=== PATIENT | female | born 1995 | race Caucasian/White ===

== ENCOUNTER 2017-01-28 11:49 | Emergency (ER) | payer MEDICAID, SELFPAY | END 2017-01-28 13:37 | disposition home or self-care (01) | PROVIDERS: Emergency Provider Emergency Medicine; Family Provider Internal Medicine Adolescent Medicine; Visit Provider Emergency Medicine | DX: O20.0 Threatened abortion (principal) | CPT/HCPCS: 76817; 81001; 81025; 87086; 99282 ==

== ENCOUNTER → 2017-01-28 | Outpatient (CLI) | payer MEDICAID, SELFPAY | PROVIDERS: Visit Provider Nurse Practitioner Obstetrics & Gynecology | DX: Z32.00 Encounter for pregnancy test, result unknown (principal); Z79.01 Long term (current) use of anticoagulants; I48.91 Unspecified atrial fibrillation; Z51.81 Encounter for therapeutic drug level monitoring | CPT/HCPCS: 36415; 84702 ==

== ENCOUNTER → 2017-01-30 | Outpatient (CLI) | payer MEDICAID, SELFPAY | PROVIDERS: Visit Provider Nurse Practitioner Obstetrics & Gynecology | DX: Z32.00 Encounter for pregnancy test, result unknown (principal) | CPT/HCPCS: 36415; 84702 ==

== ENCOUNTER 2017-02-09 21:00 | Emergency (ER) | payer MEDICAID, SELFPAY ==
[2017-02-09 22:44] VITALS: BP 121/79; PULSE 85; RESP 14; TEMP 36.9; O2SAT 100; BMI 35.0
[2017-02-09 23:04] LABS: Appearance,Urine CLEAR (Clear); Bilirubin,Urine Negative (Negative); Blood, Urine 1+ (Negative); Color,Urine YELLOW (Yellow); Glucose,Urine (UA) Negative (Negative); Ketones,Urine Negative (Negative); Leukocyte Esterase,Urine Negative (Negative); Microscopic, Urine URINE MICROSCOPIC (MICROSCOPIC); Nitrate,Urine Negative (Negative); Protein,Urine Negative (Negative); Specific Gravity, Urine 1.015 (1.005-1.030); Urine Pregnancy, HCG Qual. Positive (Negative); Urobilinogen,Urine 0.2 EU/dl (0.2)
[2017-02-09 23:18] LABS: Bacteria,Urine 1+ /lpf
[2017-02-10 01:21] VITALS: BP 110/69; PULSE 76; RESP 16; O2SAT 96
[2017-02-10 01:25] VITALS: BP 110/69; PULSE 76; RESP 16; O2SAT 96
== END 2017-02-10 01:27 | disposition left against medical advice (07) ==
PROVIDERS: Emergency Provider Emergency Medicine; Family Provider Internal Medicine Adolescent Medicine; PCP Internal Medicine Adolescent Medicine
DX: Z53.29 Procedure and treatment not carried out because of patient's decision for other reasons (principal)
CPT/HCPCS: 81001; 81025; 99283

== ENCOUNTER 2017-02-11 17:24 | Emergency (ER) | payer MEDICAID, SELFPAY ==
[2017-02-11 19:50] VITALS: BP 118/67; PULSE 100; RESP 18; TEMP 36.9; O2SAT 100; BMI 34.8
[2017-02-11 20:09] LABS: UTC Influenza A Antigen Negative (Negative); UTC Influenza B Antigen Negative (Negative)
--- NOTE | 2017-02-11 20:30 | HMH.EDUTC ---
[facility] Disposition Clinical Impression: Viral upper respiratory illness Disposition: Home, Self-Care Condition on Discharge: Good Instructions: DI for Viral Upper Respiratory Infection -- Adult Additional Instructions: * Monitor Temp. Tylenol and/or Ibuprofen as needed. ER if fever is no less than 101 despite alternating Tylenol and Ibuprofen * Encourage fluids, water, Gatorade, powerade, pedialyte if infant/toddler/or child * Warm salt water gargles for throat irritation *Warm fluids *Sleep elevated *humidifier or vaporizer Lots of rest Increase fluids, water, Gatorade, powerade Follow up IMMEDIATELY for new or worsening of symptoms OR no noticeable improvement over the next 48-72 hours. 911 immediately for any life threatening symptoms such as chest pain or difficulty breathing Referrals: Rafita Sims MD [Primary Care Provider] - Pavel Baez MD [Staff Physician] - Time of Disposition: 20:45 Medical Decision Making Vital Signs: 02/11/17 19:50 Temperature 98.5 F Temperature Source Temporal Artery Scan Pulse Rate [Right] 100 H Respiratory Rate 18 Blood Pressure [Right Arm] 118/67 Blood Pressure Mean [Right Arm] 84 Blood Pressure Source [Right Arm] Automatic Cuff Blood Pressure Position [Right Arm] Sitting 02 Sat by Pulse Oximetry 100 Oxygen Delivery Method Room Air - Lab Data Lab Results 02/11/17 19:55: Influenza Type A Ag Negative, Influenza Type B Ag Negative - Ortiz Inquiry Pt receiving controlled substance: No Ortiz was queried for this patient: No [facility] HPI - General Stated complaint: cough,face hot Mode of Arrival: Ambulatory Source of Information: Patient Limitations: No Limitations Description of Symptoms (Recalled from Triage Doc. by RN): COUGH, CONGESTION YESTERDAY, 5 WKS IUP HEENT Symptoms (Recalled from RN notes): Yes Resp Symptoms (Recalled from RN notes): No Skin Symptoms (Recalled from RN notes): No MS Symptoms (Recalled from RN notes): No Functional Status (Recalled from RN notes): N - History of Present Illness Provider Complaint: State that her daughter was recently seen and treated for the flu States that she recently found out that she is and was worried that she may have the flu too States that since this morning she has continued to feel worse States that she has ran a low grade fever and had body aches along with cough - Related Data Home Medications Medication Instructions Recorded Confirmed #103/Iron Fumarate/FA 1 each PO DAILY 02/09/17 02/09/17 [ Tablet] Allergies Allergy/AdvReac Type Severity Reaction Status Date / Time No Known Allergies Allergy Unverified 01/27/17 15:02 - Worker's Comp Is this a Worker's Comp case?: Yes [facility] History Medical History: Denies:: Cancer, Diabetes Mellitus Type 1, Diabetes Mellitus Type 2, MRSA Amputation: No Fractures: No - *Social History Smoking Status: Current every day smoker Tobacco Type: cigarettes # Packs/Day (cigarettes): 1 Alcohol Intake: never - Psychiatric History Expresses thoughts of harming self/others: None Suicide Plan Description: No Plan - ENT Reports nasal congestion - Respiratory Reports cough Physical Exam - General General appearance: alert, in no apparent distress - ENT ENT exam: Present: normal exam, normal oropharynx, mucous membranes moist, TM's normal bilaterally, normal external ear exam - Respiratory Respiratory exam: Present: normal lung sounds bilaterally. Absent: respiratory distress - Cardiovascular Cardiovascular exam: Present: regular rate, normal rhythm. Absent: JVD - Abdominal Exam Abdominal exam: Present: soft, normal bowel sounds. Absent: distention, tenderness, guarding - Neurological Exam Neurological exam: Present: alert, oriented X3
--- NOTE | 2017-02-11 20:37 | ED_ITS ---
[facility] Disposition Clinical Impression: Viral upper respiratory illness Disposition: Home, Self-Care Condition on Discharge: Good Instructions: DI for Viral Upper Respiratory Infection -- Adult Additional Instructions: * Monitor Temp. Tylenol and/or Ibuprofen as needed. ER if fever is no less than 101 despite alternating Tylenol and Ibuprofen * Encourage fluids, water, Gatorade, powerade, pedialyte if infant/toddler/or child * Warm salt water gargles for throat irritation *Warm fluids *Sleep elevated *humidifier or vaporizer Lots of rest Increase fluids, water, Gatorade, powerade Follow up IMMEDIATELY for new or worsening of symptoms OR no noticeable improvement over the next 48-72 hours. 911 immediately for any life threatening symptoms such as chest pain or difficulty breathing Referrals: Rafita Sims MD [Primary Care Provider] - Pavel Baez MD [Staff Physician] - Time of Disposition: 20:45 Medical Decision Making Vital Signs: 02/11/17 19:50 Temperature 98.5 F Temperature Source Temporal Artery Scan Pulse Rate [Right] 100 H Respiratory Rate 18 Blood Pressure [Right Arm] 118/67 Blood Pressure Mean [Right Arm] 84 Blood Pressure Source [Right Arm] Automatic Cuff Blood Pressure Position [Right Arm] Sitting 02 Sat by Pulse Oximetry 100 Oxygen Delivery Method Room Air - Lab Data Lab Results 02/11/17 19:55: Influenza Type A Ag Negative, Influenza Type B Ag Negative - Ortiz Inquiry Pt receiving controlled substance: No Ortiz was queried for this patient: No [facility] HPI - General Stated complaint: cough,face hot Mode of Arrival: Ambulatory Source of Information: Patient Limitations: No Limitations Description of Symptoms (Recalled from Triage Doc. by RN): COUGH, CONGESTION YESTERDAY, 5 WKS IUP HEENT Symptoms (Recalled from RN notes): Yes Resp Symptoms (Recalled from RN notes): No Skin Symptoms (Recalled from RN notes): No MS Symptoms (Recalled from RN notes): No Functional Status (Recalled from RN notes): N - History of Present Illness Provider Complaint: State that her daughter was recently seen and treated for the flu States that she recently found out that she is and was worried that she may have the flu too States that since this morning she has continued to feel worse States that she has ran a low grade fever and had body aches along with cough - Related Data Home Medications Medication Instructions Recorded Confirmed #103/Iron Fumarate/FA 1 each PO DAILY 02/09/17 02/09/17 [ Tablet] Allergies Allergy/AdvReac Type Severity Reaction Status Date / Time No Known Allergies Allergy Unverified 01/27/17 15:02 - Worker's Comp Is this a Worker's Comp case?: Yes [facility] History Medical History: Denies:: Cancer, Diabetes Mellitus Type 1, Diabetes Mellitus Type 2, MRSA Amputation: No Fractures: No - *Social History Smoking Status: Current every day smoker Tobacco Type: cigarettes # Packs/Day (cigarettes): 1 Alcohol Intake: never - Psychiatric History Expresses thoughts of harming self/others: None Suicide Plan Description: No Plan - ENT Reports nasal congestion - Respiratory Reports cough Physical Exam - General General appearance: alert, in no apparent distress - ENT ENT e
== END 2017-02-11 20:48 | disposition home or self-care (01) ==
PROVIDERS: Emergency Provider Nurse Practitioner; PCP Internal Medicine Adolescent Medicine
DX: J06.9 Acute upper respiratory infection, unspecified (principal); F17.210 Nicotine dependence, cigarettes, uncomplicated
CPT/HCPCS: 87276; 87804; 99202

== ENCOUNTER 2017-02-17 23:04 | Emergency (ER) | payer MEDICAID, SELFPAY ==
[2017-02-17 23:09] VITALS: BP 107/66; PULSE 104; RESP 16; TEMP 36.6; O2SAT 99; BMI 37.1
[2017-02-17 23:31] LABS: Appearance,Urine CLEAR (Clear); Bilirubin,Urine Negative (Negative); Blood, Urine 3+ (Negative); Color,Urine YELLOW (Yellow); Glucose,Urine (UA) Negative (Negative); Ketones,Urine Negative (Negative); Leukocyte Esterase,Urine TRACE (Negative); Microscopic, Urine URINE MICROSCOPIC (MICROSCOPIC); Nitrate,Urine Negative (Negative); Protein,Urine Negative (Negative); Specific Gravity, Urine 1.025 (1.005-1.030); Urobilinogen,Urine 0.2 EU/dl (0.2)
[2017-02-17 23:32] LABS: Basophils % 0.2 % (0.1-2.0); Eosinophils # 0.3 K/mm3 (0.0-0.4); Eosinophils % 2.6 % (0.1-12.0); Hematocrit 37.8 % (37.0-47.0); Hemoglobin 12.4 g/dL (12.2-16.2); Lymphocytes # 3.5 K/mm3 (0.7-4.5); Lymphocytes % 27.7 K/mm3 (10-50); Mean Corpuscular HGB Conc 32.7 g/dL (31.8-35.4); Mean Corpuscular Hemoglobin 28.6 pg (27.0-31.2); Mean Corpuscular Volume 87.2 fl (81-99); Mean Platelet Volume 7.4 fl (7.4-10.4); Monocytes # 0.4 K/mm3 (0.1-1.0); Monocytes % 3.2 % (1.7-9.3); Neutrophils # 8.3 K/mm3 (1.8-7.8); Neutrophils % 66.5 % (37.0-80.0); Platelet Count 305 K/mm3 (142-424); Red Blood Count 4.34 M/mm3 (4.20-5.40); Red Cell Distribution Width 13.4 % (11.5-17.5); White Blood Count 12.6 K/mm3 (4.5-13.0)
[2017-02-18 00:13] LABS: Alanine Aminotransferase 21 U/L (12-78); Albumin Level 3.1 gm/dL (3.4-5.0); Albumin/Globulin Ratio 0.9 (1.1-1.8); Alkaline Phosphatase 88 U/L (46-116); Anion Gap 12.8 mEq/L (5-15); Aspartate Amino Transferase 12 U/L (15-37); Bilirubin,Total 0.1 mg/dL (0.2-1.0); Blood Urea Nitrogen 6 mg/dL (7-18); Calcium 8.4 mg/dL (8.5-10.1); Carbon Dioxide 27 mmol/L (21.0-32.0); Chloride 104 mmol/L (98-107); Creatinine Clearance Estimated 188 mL/min (0-300); Creatinine,Serum 0.55 mg/dL (0.55-1.02); Estimated Glomerular Filt Rate 142 ml/min (>60); GFR (African American) 172 ML/MIN (>60); Globulin 3.5 gm/dl (1.3-3.2); Glucose 105 mg/dL (74-106); Potassium 3.8 mmoL/L (3.5-5.1); Sodium 140 mmol/L (136-145); Total Protein,Serum 6.6 gm/dL (6.4-8.2)
[2017-02-18 00:21] LABS: HCG,Quantitative 31499 mIU/mL
--- NOTE | 2017-02-18 00:36 | HMH.EDPREG ---
ED Disposition Clinical Impression: Threatened Disposition: Home, Self-Care Condition on Discharge: Good Additional Instructions: keep appt this am with dr atkinson Referrals: Rafita Sims MD [Primary Care Provider] - - Critical Care Critical Care Time: No Attestation: On 02/17/17, the high probability of a clinically significant, sudden or life threatening deterioration of the following system(s) required my full and direct attention, intervention and personal management. The time I documented below is in addition to time spent performing reported procedures but includes the following listed in this critical care notation. Medical Decision Making - Medical Records Medical records reviewed: Yes: I reviewed the patient's medical records. Vital Signs: 02/17/17 23:09 Temperature 97.8 F Temperature Source Oral Pulse Rate [Brachial] 104 H Respiratory Rate 16 Blood Pressure [Right Arm] 107/66 Blood Pressure Mean [Right Arm] 79 Blood Pressure Source [Right Arm] Automatic Cuff Blood Pressure Position [Right Arm] Sitting 02 Sat by Pulse Oximetry 99 Oxygen Delivery Method Room Air - Lab Data Lab results reviewed: Yes: I reviewed the patient's lab results. Lab Results 02/17/17 23:15: WBC 12.6, RBC 4.34, Hgb 12.4, Hct 37.8, MCV 87.2, MCH 28.6, MCHC 32.7, RDW 13.4, Plt Count 305, MPV 7.4, Neut % (Auto) 66.5, Lymph % (Auto) 27.7, [place] % (Auto) 3.2, Eos % (Auto) 2.6, Baso % (Auto) 0.2, Neut # (Auto) 8.3 H, Lymph # (Auto) 3.5, [place] # (Auto) 0.4, Eos # (Auto) 0.3, Baso # (Auto) 0.0 02/17/17 23:15: Sodium 140, Potassium 3.8, Chloride 104, Carbon Dioxide 27, Anion Gap 12.8, BUN 6 L, Creatinine 0.55, Estimated Creat Clear 188, Estimated GFR 142, Est GFR ( Amer) 172, Glucose 105, Calcium 8.4 L, Total Bilirubin 0.1 L, AST 12 L, ALT 21, Alkaline Phosphatase 88, Total Protein 6.6, Albumin 3.1 L, Globulin 3.5 H, Albumin/Globulin Ratio 0.9 L, HCG, Quant [id number] H 02/17/17 23:22: Urine Color Yellow, Urine Appearance Clear, Urine pH 6.0, Ur Specific [place] 1.025, Urine Protein Negative, Urine Glucose (UA) Negative, Urine Ketones Negative, Urine Blood 3+, Urine Nitrate Negative, Urine Bilirubin Negative, Urine Urobilinogen 0.2, Ur Leukocyte Esterase Trace Result diagrams: 02/17/17 23:15 02/17/17 23:15 Orders (Tests/Meds): ORDERS Category Date Time Status UA [Urinalysis and Microscopic] Stat Lab 02/17/17 23:22 Results - Physician Consults Physician Consulted: demetrio Reason -: Pt condition - Ortiz Inquiry Pt receiving controlled substance: No HPI - General Chief complaint: Vaginal Bleeding Stated complaint: Vaginal Bleeding four to five weeks Time Seen by Provider: 02/18/17 00:37 Mode of Arrival: Ambulatory Source of Information: Patient, Significant Other, Medical Record Limitations: No Limitations Description of Symptoms (Recalled from ER Triage Doc. by RN): VAGINAL BLEEDING [employer], PATIENT IS 6 WEEKS - History of Present Illness HPI Narrative: pt with sl bleeding this pm with no pain - about 6 weeks MD Complaint: vaginal bleeding Onset (ago): hour(s) Consistency: now resolved Location: pelvis Severity: mild Relieving factors: none Exacerbating factors: none Vaginal discharge: none Vaginal bleeding: light : yes Date of Last Menstrual Period: NA - Related Data Home Medications Medication Instructions Recorded Confirmed #103/Iron Fumarate/FA 1 each PO DAILY 02/09/17 02/09/17 [ Tablet] Allergies Allergy/AdvReac Type Severity Reaction Status Date / Time No Known Allergies Allergy Verified 02/17/17 23:15 [facility] History I have reviewed the patient's past medical history: Yes Medical History: Denies:: Cancer, Diabetes Mellitus Type 1, Diabetes Mellitus Type 2, MRSA Amputation: No Fractures: No - *Social History Smoking Status: Current every day smoker Tobacco Type: cigarettes # Packs/D
[2017-02-18 01:04] LABS: Bacteria,Urine 1+ /lpf
== END 2017-02-18 01:03 | disposition home or self-care (01) ==
PROVIDERS: Emergency Provider Emergency Medicine; Family Provider Internal Medicine Adolescent Medicine; PCP Internal Medicine Adolescent Medicine
DX: O20.0 Threatened abortion (principal); Z3A.01 Less than 8 weeks gestation of pregnancy; F17.210 Nicotine dependence, cigarettes, uncomplicated
CPT/HCPCS: 80053; 81001; 84702; 85025; 99283

== ENCOUNTER → 2017-02-18 09:03 | Outpatient (CLI) | payer MEDICAID, SELFPAY ==
[2017-02-20 17:16] LABS: Hepatitis B Surface Antigen Negative (Negative); Hepatitis C Antibody <0.1 s/co ratio (0.0-0.9); Rapid Plasma Reagin Ab Titer Non Reactive (NonRea<1:1); Rubella Antibodies, IgG 2.56 index (Immune >0.99)
== END ==
PROVIDERS: Family Provider Internal Medicine Adolescent Medicine; PCP Internal Medicine Adolescent Medicine; Visit Provider Nurse Practitioner Obstetrics & Gynecology
DX: Z34.90 Encounter for supervision of normal pregnancy, unspecified, unspecified trimester (principal)
CPT/HCPCS: 36415; 86592; 86762; 86850; 87340; 87380

== ENCOUNTER → 2017-02-23 07:55 | Outpatient (CLI) | payer MEDICAID, SELFPAY ==
--- NOTE | 2017-02-23 07:58 | US_ITS ---
US OB transvaginal Ordering Physician: Pavel Baez MD Patient Age: 22 years: Female HISTORY: ITS.REASON: OB US for DATES TECHNIQUE: Transvaginal pelvic ultrasound. Early OB. Evaluate for dates COMPARISON : FINDINGS : Anechoic fluid collections, sac within the uterus. Appears to be a gestational sac with a small satellite area above it. This is reaction seems to surround the but there is no pole here. The mean sac size 2.1 cm = 6 weeks 5 days. Clearly well-defined f pole with heartbeat should be evident with this size G sac Cervix appears long and closed with only question some scant fluid along the cervix . No discrete yolk sac. Findings reflect blighted ovum/or missed AB Ovaries appear normal in size with no adnexal mass. Left ovary 2.7 x 1.6 x 1.8 cm. Scattered small follicles about margin left ovary. Right ovary 2.5 x 1.8 x 2 cm with scattered small follicles about its margin. No fluid in cul-de-sac (lead nuclear medicine technologist discussed findings with dr. vidal) IMPRESSION--- 1. Ovoid Intrauterine fluid collection appears to be a intrauterine gestational sac. . It measures 2.1 cm mean sac size == 6 weeks 5 days However there is no pole. Nor yolk sac. With Long closed cervix.. Likely blighted ovum. Patient may benefit from serum serial beta hCG to additionally confirm this impression 2. Ovaries appear normal in size with only tiny follicles about margin both ovaries . No prominent cystic mass suspect for ectopic, within either adnexa. No fluid in cul-de-sac.
== END ==
PROVIDERS: Family Provider Internal Medicine Adolescent Medicine; PCP Internal Medicine Adolescent Medicine; Visit Provider Nurse Practitioner Obstetrics & Gynecology
DX: O26.841 Uterine size-date discrepancy, first trimester (principal)
CPT/HCPCS: 76830

== ENCOUNTER → 2017-02-24 08:49 | Outpatient (CLI) | payer MEDICAID, SELFPAY ==
[2017-02-24 10:15] LABS: HCG,Quantitative 23034 mIU/mL
== END ==
PROVIDERS: Family Provider Internal Medicine Adolescent Medicine; PCP Internal Medicine Adolescent Medicine; Visit Provider Nurse Practitioner Obstetrics & Gynecology
DX: Z34.90 Encounter for supervision of normal pregnancy, unspecified, unspecified trimester (principal)
CPT/HCPCS: 36415; 84702

== ENCOUNTER → 2017-02-26 09:05 | Outpatient (CLI) | payer MEDICAID, SELFPAY ==
[2017-02-26 11:13] LABS: HCG,Quantitative 17817 mIU/mL
== END ==
PROVIDERS: PCP Nurse Practitioner Obstetrics & Gynecology; Visit Provider Nurse Practitioner Obstetrics & Gynecology
DX: Z32.00 Encounter for pregnancy test, result unknown (principal)
CPT/HCPCS: 36415; 84702

== ENCOUNTER 2017-02-27 09:08 | Day surgery (SDC) | payer MEDICAID, SELFPAY ==
[2017-02-26 13:31] VITALS: BMI 32.5
[2017-02-27] VITALS (10 sets, daily range): BP systolic 88–115; BP diastolic 53–86; PULSE 66–104; RESP 12–20; TEMP 36.2–37.3; O2SAT 95–100
--- NOTE | 2017-02-27 10:09 | HMH.ANESCL ---
[facility] Anesthesia Checklist - Patient Identification Patient Identification: Arm Band - Structural Data Admitted From: Home Planned Operative Procedure/s: D&E Consent for Planned Operative Procedure(s) Verified: Yes Verified Documents: Surgical Consent, History and Physical - NPO Status Verified Time NPO: 00:00 - Additional verifications Anesthesia Reactions: No - Airway Assessment C-Spine Mobility Assessed: Yes (MP2) TMJ Mobility Assessed: Yes Dentition: Good Dentition - Neurological Assessment Level of Consciousness: Awake, Alert - Anesthesia Plan Anesthesia Risk discussed: Yes Anesthesia Plan: Verified ASA Class: II Anesthesia Type: General [facility] Anesthesia HX I have reviewed the patient's past medical history: Yes Medical History: Reports:: Seizures (as a child, no on meds) Denies:: Cancer, Diabetes Mellitus Type 1, Diabetes Mellitus Type 2, MRSA Other Medical History: Denies: Blood Transfusion Reaction Comment: smoker Other Surgeries: Yes: Amputation: No Fractures: No Comment: rosita *Family Hx:: No significant family history, Diabetes
--- NOTE | 2017-02-27 10:59 | HMH.OPNOTE ---
Date of procedure: 02/27/17 Pre-op Diagnosis:: Missed Post-op diagnosis:: same Procedure performed:: Dilation and evacuation with Jac suction Surgeon:: Pavel Baez MD TOOL SALVAGE WORKER:: Luis Singh Anesthesia: LMA Estimated blood loss (mL): 50 Clinical Note:: She is a 22-year-old 2 para 1 who was 12 weeks gestational age. She has been followed with beta hCGs and ultrasound showed no evidence of a fetus. There was a gestational sac and placental tissue. Her beta hCGs dropped from 23,000-17,000. As a result of that she was offered dilation and evacuation. Risks and benefits of surgery was in her prior to surgery. Operative findings:: She had an anteverted bulky uterus. Operative note:: She was taken to the operating room where LMA anesthesia was found be adequate. She was prepped in normal sterile fashion in the lithotomy position. A weighted speculum was put in the vagina and the anterior lip of the cervix was grasped with a tenaculum. Hussein dilators were used to dilate the cervix to 1 cm. I then used a 10 mm curved [place] suction curette to evacuate the uterine contents. This was followed by a gentle curettage. The patient tolerated the procedure well and was taken to the recovery room in excellent condition. All sponge and instrument counts were correct. The estimated blood loss was less than 50 cc. Pathology: other Condition: stable Disposition: PACU Specimens:: Products of conception Complications:: None
--- NOTE | 2017-02-27 11:02 | P.OP_ITS ---
Date of procedure: 02/27/17 Pre-op Diagnosis:: Missed Post-op diagnosis:: same Procedure performed:: Dilation and evacuation with Jac suction Surgeon:: Pavel Baez MD MICROSTRATEGY ARCHITECT DEVELOPER:: Luis Singh Anesthesia: LMA Estimated blood loss (mL): 50 Clinical Note:: She is a 22-year-old 2 para 1 who was 12 weeks gestational age. She has been followed with beta hCGs and ultrasound showed no evidence of a fetus. There was a gestational sac and placental tissue. Her beta hCGs dropped from 23 ,000-17,000. As a result of that she was offered dilation and evacuation. Risks and benefits of surgery was in her prior to surgery. Operative findings:: She had an anteverted bulky uterus. Operative note:: She was taken to the operating room where LMA anesthesia was found be adequate. She was prepped in normal sterile fashion in the lithotomy position. A weighted speculum was put in the vagina and the anterior lip of the cervix was grasped with a tenaculum. Hussein dilators were used to dilate the cervix to 1 cm. I then used a 10 mm curved [place] suction curette to evacuate the uterine contents. This was followed by a gentle curettage. The patient tolerated the procedure well and was taken to the recovery room in excellent condition. All sponge and instrument counts were correct. The estimated blood loss was less than 50 cc. Pathology: other Condition: stable Disposition: PACU Specimens:: Products of conception Complications:: None
--- NOTE | 2017-02-27 11:04 | P.PN_ITS ---
[facility] Anesthesia Record Part I Intake, IV Amount: 800 Estimated blood loss (mL): 50 Urine output (mL): 0 Blood Pressure: 100/66 SaO2: 96 Pulse Rate: 95 Respiratory Rate: 12 Temperature: 98 F Patient is:: Drowsy, Stable Stable to PACU at:: 11:00
--- NOTE | 2017-02-27 11:04 | HMH.ANESII ---
[facility] Anesthesia Record Part II Discharge Time: 11:30 Destination: [facility] PACU nurse assessment reviewed?: Yes Patient Condition:: Good Anesthesia Complications:: None
--- NOTE | 2017-02-27 11:06 | P.PN_ITS ---
[facility] Anesthesia Record Part II Discharge Time: 11:30 Destination: [facility] PACU nurse assessment reviewed?: Yes Patient Condition:: Good Anesthesia Complications:: None
--- NOTE | 2017-02-27 13:37 | SUR.PHASEII ---
gave pt 1 percocet 5/325mg and 800mg ibuprofen for pain 6/10 at 1200. pain 3/10 upon dc'd
== END 2017-02-27 12:19 | disposition home or self-care (01) ==
LOC: OR 09:09
PROVIDERS: Family Provider Internal Medicine Adolescent Medicine; PCP Internal Medicine Adolescent Medicine; Visit Provider Nurse Practitioner Obstetrics & Gynecology
PROC: (CPT 59820; principal; 2017-02-27 10:00)
DX: O02.1 Missed abortion (principal)
CPT/HCPCS: 59820; 96374; J2405

== ENCOUNTER 2017-03-07 18:44 | Emergency (ER) | payer MEDICAID, SELFPAY ==
[2017-03-07 18:57] VITALS: BP 137/85; PULSE 117; RESP 20; TEMP 36.8; O2SAT 98; BMI 35.6
--- NOTE | 2017-03-07 18:58 | HMH.EDUTC ---
[facility] [place] Clinical Impression: Migraine Qualifiers: Migraine type: unspecified Status migrainosus presence: without status migrainosus Intractability: not intractable Qualified Code(s): G43.909 - Migraine, unspecified, not intractable, without status migrainosus Disposition: Home, Self-Care Condition on Discharge: Good Instructions: Migraine -- Adult, DI for Migraine Additional Instructions: Take medication as prescribed Follow up with Family doctor for further treatment and evaluation Return if needed Go home take Benadryl and lay down and sleep off migraine If you began to have any numbness in face, worsening of headache or vision trouble go straight to ER Prescriptions: Ibuprofen [Motrin 400mg tablet] 400 mg PO Q4HP PRN #20 tab PRN Reason: Moderate Pain Referrals: aRfita Sims MD [Primary Care Provider] - Time of Disposition: 19:42 Medical Decision Making - Medical Records Medical records reviewed: Yes: I reviewed the patient's medical records. Vital Signs: 03/07/17 18:57 Temperature 98.2 F Temperature Source Temporal Artery Scan Pulse Rate [Right Brachial] 117 H Respiratory Rate 20 Blood Pressure [Right Arm] 137/85 Blood Pressure Mean [Right Arm] 102 Blood Pressure Source [Right Arm] Automatic Cuff Blood Pressure Position [Right Arm] Sitting 02 Sat by Pulse Oximetry 98 Oxygen Delivery Method Room Air Orders (Tests/Meds): ED MEDICATIONS Discontinued Medications Generic Name Dose Route Start Last Admin Trade Name Freq PRN Reason Stop Dose Admin Ketorolac Tromethamine 60 mg 03/07/17 19:08 03/07/17 19:37 Toradol 60mg/2ml Vial IM 03/07/17 19:09 60 mg ONCE ONE Administration Metoclopramide HCl 10 mg 03/07/17 19:08 03/07/17 19:37 Metoclopramide 10mg Tablet PO 03/07/17 19:09 10 mg ONCE ONE Administration - Ortiz Inquiry Pt receiving controlled substance: No Ortiz was queried for this patient: No - Reevaluation(s) Time: 19:43 (Patient state that medication worked migraine now almost gone) [facility] [place] - General Stated complaint: migraine - History of Present Illness Provider Complaint: Patient state that she has a history of migraine headaches, State that she has had a migraine now for about 3 days State that she has taken Tylenol and one dose of advil before she ran out of medication and it didn't help much. State that this migraine is like others she has had before - Related Data Home Medications Medication Instructions Recorded Confirmed #103/Iron Fumarate/FA 1 each PO DAILY 02/09/17 02/27/17 [ Tablet] Previous Rx's Medication Instructions Recorded Ibuprofen [Motrin 400mg 400 mg PO Q4HP PRN #20 tab 03/07/17 tablet] Allergies Allergy/AdvReac Type Severity Reaction Status Date / Time No Known Allergies Allergy Verified 02/27/17 08:28 [facility] History I have reviewed the patient's past medical history: Yes Medical History: Reports:: Seizures (as a child, no on meds) Denies:: Cancer, Diabetes Mellitus Type 1, Diabetes Mellitus Type 2, MRSA Other Medical History: Denies: Blood Transfusion Reaction Other Surgeries: Yes: Amputation: No Fractures: No - *Social History Smoking Status: Never smoker Tobacco Type: cigarettes # Packs/Day (cigarettes): 1 Alcohol Intake: never Substance Use Type: denies use *Family Hx:: No significant family history, Diabetes ROS Obtained: Yes All systems reviewed & no additional complaints - Constitutional Constitutional: Reports headache(s) Physical Exam - General General appearance: alert, in no apparent distress - Eye Eye exam: Present: normal appearance, PERRL, EOMI - Respiratory Respiratory exam: Present: normal lung sounds bilaterally. Absent: respiratory distress - Cardiovascular Cardiovascular exam: Present: tachycardia - Neurological Exam Neurological exam: Present: alert, oriented X3 - Other Other exam informatio
--- NOTE | 2017-03-07 19:03 | ED_ITS ---
[facility] [place]: Migraine Qualifiers: Migraine type: unspecified Status migrainosus presence: without status migrainosus Intractability: not intractable Qualified Code(s): G43.909 - Migraine, unspecified, not intractable, without status migrainosus Disposition: Home, Self-Care Condition on Discharge: Good Instructions: Migraine -- Adult, DI for Migraine Additional Instructions: Take medication as prescribed Follow up with Family doctor for further treatment and evaluation Return if needed Go home take Benadryl and lay down and sleep off migraine If you began to have any numbness in face, worsening of headache or vision trouble go straight to ER Prescriptions: Ibuprofen [Motrin 400mg tablet] 400 mg PO Q4HP PRN #20 tab PRN Reason: Moderate Pain Referrals: Rafita Sims MD [Primary Care Provider] - Time of Disposition: 19:42 Medical Decision Making - Medical Records Medical records reviewed: Yes: I reviewed the patient's medical records. Vital Signs: 03/07/17 18:57 Temperature 98.2 F Temperature Source Temporal Artery Scan Pulse Rate [Right Brachial] 117 H Respiratory Rate 20 Blood Pressure [Right Arm] 137/85 Blood Pressure Mean [Right Arm] 102 Blood Pressure Source [Right Arm] Automatic Cuff Blood Pressure Position [Right Arm] Sitting 02 Sat by Pulse Oximetry 98 Oxygen Delivery Method Room Air Orders (Tests/Meds): ED MEDICATIONS Discontinued Medications Generic Name Dose Route Start Last Admin Trade Name Freq PRN Reason Stop Dose Admin Ketorolac Tromethamine 60 mg 03/07/17 19:08 03/07/17 19:37 Toradol 60mg/2ml Vial IM 03/07/17 19:09 60 mg ONCE ONE Administration Metoclopramide HCl 10 mg 03/07/17 19:08 03/07/17 19:37 Metoclopramide 10mg Tablet PO 03/07/17 19:09 10 mg ONCE ONE Administration - Ortiz Inquiry Pt receiving controlled substance: No Ortiz was queried for this patient: No - Reevaluation(s) Time: 19:43 (Patient state that medication worked migraine now almost gone) [facility] [place] General Stated complaint: migraine - History of Present Illness Provider Complaint: Patient state that she has a history of migraine headaches, State that she has had a migraine now for about 3 days State that she has taken Tylenol and one dose of advil before she ran out of medication and it didn't help much. State that this migraine is like others she has had before - Related Data Home Medications Medication Instructions Recorded Confirmed #103/Iron Fumarate/FA 1 each PO DAILY 02/09/17 02/27/17 [ Tablet] Previous Rx's Medication Instructions Recorded Ibuprofen [Motrin 400mg 400 mg PO Q4HP PRN #20 tab 03/07/17 tablet] Allergies Allergy/AdvReac Type Severity Reaction Status Date / Time No Known Allergies Allergy Verified 02/27/17 08:28 [facility] History I have reviewed the patient's past medical history: Yes Medical History: Reports:: Seizures (as a child, no on meds) Denies:: Cancer, Diabetes Mellitus Type 1, Diabetes Mellitus Type 2, MRSA Other Medical History: Denies: Blood Transfusion Reaction Other Surgeries: Yes: Amputation: No Fractures: No - *Social History Smoking Status: Ne
--- NOTE | 2017-03-07 19:25 | PC.NURSE ---
Pt advises that she had a D&C on 01/27/17 D/T a miscarriage. Pt states that there is no chance of at this time.
[2017-03-07 19:52] VITALS: BP 137/85; PULSE 117; RESP 20; TEMP 36.8; O2SAT 98
== END 2017-03-07 19:54 | disposition home or self-care (01) ==
PROVIDERS: Emergency Provider Nurse Practitioner; Family Provider Internal Medicine Adolescent Medicine; PCP Internal Medicine Adolescent Medicine
DX: G43.909 Migraine, unspecified, not intractable, without status migrainosus (principal)
CPT/HCPCS: 96372; 99203

== ENCOUNTER 2017-03-29 17:09 | Emergency (ER) | payer MEDICAID, SELFPAY ==
[2017-03-29 17:22] VITALS: BP 123/86; PULSE 92; RESP 20; TEMP 36.6; O2SAT 99; BMI 34.8
--- NOTE | 2017-03-29 17:26 | HMH.EDUTC ---
[facility] [place] Clinical Impression: URI (upper respiratory infection) Qualifiers: URI type: unspecified URI Qualified Code(s): J06.9 - Acute upper respiratory infection, unspecified Disposition: Home, Self-Care Condition on Discharge: Good Instructions: DI for Cough -- Adult, DI for Ear Pain-Adult, Sore Throat, DI for Nasal Congestion Additional Instructions: Take medication as prescribed Follow up with family doctor if no improvement or worsening of symptoms Return if needed Over the counter Motrin or Tylenol as needed for fever or pain * Monitor Temp. Tylenol and/or Ibuprofen as needed. ER if fever is no less than 101 despite alternating Tylenol and Ibuprofen * Encourage fluids, water, Gatorade, powerade, pedialyte if infant/toddler/or child * Warm salt water gargles for throat irritation *Warm fluids *Sore throat lozenges *Sleep elevated *humidifier or vaporizer Lots of rest Increase fluids, water, Gatorade, powerade *Flonase 2 sprays each nostril daily but may take 2-3 days to notice improvement with it *Bromfed may cause drowsiness. Know how it effect you or your child. Before driving, caring for small children or sending your child to school *Your throat swab was sent to lab for culture. Those results area typically sent to your primary care physician. Be sure to follow up in 2-3 days if no improvement so they can review those results and treat if necessary If you dont have primary care I recommend you get one, but in the mean time you will have to return to a walk in clinic Follow up IMMEDIATELY for new or worsening of symptoms OR no noticeable improvement over the next 48-72 hours. 911 immediately for any life threatening symptoms such as chest pain or difficulty breathing Prescriptions: Brompheniramine/Pseudoephed/Dm [Bromfed DM Cough Syrup 5mL] 10 ml PO Q4HP PRN #250 ml PRN Reason: Cough Azithromycin [Z-Adalberto 250mg Tab] 250 mg PO UD DOSE PK #6 tab predniSONE [Prednisone 5mg Tab Dose-Pack] 5 mg PO UD DOSE PK #1 pack Referrals: Rafita Sims MD [Primary Care Provider] - Time of Disposition: 17:47 Medical Decision Making - Medical Records Medical records reviewed: Yes: I reviewed the patient's medical records. Vital Signs: 03/29/17 17:22 Temperature 98 F Temperature Source Temporal Artery Scan Pulse Rate [Right] 92 H Respiratory Rate 20 Blood Pressure [Right Arm] 123/86 Blood Pressure Mean [Right Arm] 98 Blood Pressure Source [Right Arm] Automatic Cuff Blood Pressure Position [Right Arm] Sitting 02 Sat by Pulse Oximetry 99 Oxygen Delivery Method Room Air - Lab Data Lab Results 03/29/17 17:25: Strep Scn [facility] Negative 03/29/17 17:25: Influenza Type A Ag Negative, Influenza Type B Ag Negative Orders (Tests/Meds): ORDERS Category Date Time Status Strep Screen Confirmation Stat Micro 03/29/17 17:25 Received - Ortiz Inquiry Pt receiving controlled substance: No Ortiz was queried for this patient: No [facility] [place] General Stated complaint: Left ear pain and drainage Mode of Arrival: Ambulatory Source of Information: Patient Limitations: No Limitations Description of Symptoms (Recalled from Triage Doc. by RN): LEFT EAR ACHE HEENT Symptoms (Recalled from RN notes): Yes Resp Symptoms (Recalled from RN notes): No Skin Symptoms (Recalled from RN notes): No MS Symptoms (Recalled from RN notes): No Functional Status (Recalled from RN notes): N - History of Present Illness Provider Complaint: Patient state that she has been having flu like symptoms along with sore throat pain in left ear and nasal congestion State that she hasn't felt well in several days but has continued to get worse so she came in to get checked out State that has has also had some nausea and diarrhea this morning - Related Data Previous Rx's Medication Instructions Recorded Ibuprofen [Motrin 400mg 400 mg PO Q4HP PRN #20 tab 03/07/17 tablet] Azithromycin [Z-Adalberto 250mg Tab] 250 mg PO UD DOSE
--- NOTE | 2017-03-29 17:29 | ED_ITS ---
[facility] [place] Clinical Impression: URI (upper respiratory infection) Qualifiers: URI type: unspecified URI Qualified Code(s): J06.9 - Acute upper respiratory infection, unspecified Disposition: Home, Self-Care Condition on Discharge: Good Instructions: DI for Cough -- Adult, DI for Ear Pain-Adult, Sore Throat, DI for Nasal Congestion Additional Instructions: Take medication as prescribed Follow up with family doctor if no improvement or worsening of symptoms Return if needed Over the counter Motrin or Tylenol as needed for fever or pain * Monitor Temp. Tylenol and/or Ibuprofen as needed. ER if fever is no less than 101 despite alternating Tylenol and Ibuprofen * Encourage fluids, water, Gatorade, powerade, pedialyte if infant/toddler/or child * Warm salt water gargles for throat irritation *Warm fluids *Sore throat lozenges *Sleep elevated *humidifier or vaporizer Lots of rest Increase fluids, water, Gatorade, powerade *Flonase 2 sprays each nostril daily but may take 2-3 days to notice improvement with it *Bromfed may cause drowsiness. Know how it effect you or your child. Before driving, caring for small children or sending your child to school *Your throat swab was sent to lab for culture. Those results area typically sent to your primary care physician. Be sure to follow up in 2-3 days if no improvement so they can review those results and treat if necessary If you don? t have primary care I recommend you get one, but in the mean time you will have to return to a walk in clinic Follow up IMMEDIATELY for new or worsening of symptoms OR no noticeable improvement over the next 48-72 hours. 911 immediately for any life threatening symptoms such as chest pain or difficulty breathing Prescriptions: Brompheniramine/Pseudoephed/Dm [Bromfed DM Cough Syrup 5mL] 10 ml PO Q4HP PRN # 250 ml PRN Reason: Cough Azithromycin [Z-Adalberto 250mg Tab] 250 mg PO UD DOSE PK #6 tab predniSONE [Prednisone 5mg Tab Dose-Pack] 5 mg PO UD DOSE PK #1 pack Referrals: Rafita Sims MD [Primary Care Provider] - Time of Disposition: 17:47 Medical Decision Making - Medical Records Medical records reviewed: Yes: I reviewed the patient's medical records. Vital Signs: 03/29/17 17:22 Temperature 98 F Temperature Source Temporal Artery Scan Pulse Rate [Right] 92 H Respiratory Rate 20 Blood Pressure [Right Arm] 123/86 Blood Pressure Mean [Right Arm] 98 Blood Pressure Source [Right Arm] Automatic Cuff Blood Pressure Position [Right Arm] Sitting 02 Sat by Pulse Oximetry 99 Oxygen Delivery Method Room Air - Lab Data Lab Results 03/29/17 17:25: Strep Scn Rapid [facility] Negative 03/29/17 17:25: Influenza Type A Ag Negative, Influenza Type B Ag Negative Orders (Tests/Meds): ORDERS Category Date Time Status Strep Screen Confirmation Stat Micro 03/29/17 17:25 Received - Ortiz Inquiry Pt receiving controlled substance: No Ortiz was queried for this patient: No [facility] [place] - General Stated complaint: Left ear pain and drainage Mode of Arrival: Ambulatory Source of Information: Patient Limitations: No Limitations Description of Symptoms (Recalled from Triage Doc. by RN): LEFT EAR ACHE HEENT Symptoms (Recalled from RN notes): Yes Resp Symptoms (Recalled from RN notes): No Skin Symptoms (Recalled from RN notes): No MS Symptoms (Recalled from RN notes): No Functional Status (Recalled from RN notes): N - Histo
[2017-03-29 17:36] LABS: UTC Strep Screen (Rapid) Negative (Negative)
[2017-03-29 17:37] LABS: UTC Influenza A Antigen Negative (Negative); UTC Influenza B Antigen Negative (Negative)
[2017-03-29 17:48] VITALS: BP 138/87; PULSE 98; RESP 18; TEMP 36.1; O2SAT 97
== END 2017-03-29 17:49 | disposition home or self-care (01) ==
PROVIDERS: Emergency Provider Nurse Practitioner; Family Provider Internal Medicine Adolescent Medicine; PCP Internal Medicine Adolescent Medicine
DX: J06.9 Acute upper respiratory infection, unspecified (principal); F17.210 Nicotine dependence, cigarettes, uncomplicated
CPT/HCPCS: 87804; 87880; 99202

== ENCOUNTER 2017-05-11 19:12 | Emergency (ER) | payer MEDICAID, SELFPAY ==
[2017-05-11 19:23] VITALS: BP 136/77; PULSE 111; RESP 20; TEMP 36.8; O2SAT 99; BMI 37.1
--- NOTE | 2017-05-11 19:45 | HMH.EDUTC ---
[facility] [place] Clinical Impression: Left otitis media Qualifiers: Otitis media type: suppurative Chronicity: acute Recurrence: not specified as recurrent Spontaneous tympanic membrane rupture: without spontaneous rupture Qualified Code(s): H66.002 - Acute suppurative otitis media without spontaneous rupture of ear drum, left ear Acute pharyngitis Qualifiers: Pharyngitis/tonsillitis etiology: unspecified etiology Qualified Code(s): J02.9 - Acute pharyngitis, unspecified Disposition: Home, Self-Care Condition on Discharge: Good Instructions: DI for Otitis Media (Middle Ear Infection)-Child, DI for Viral Pharyngitis Additional Instructions: ear * Start antibiotic NAIMA and be sure to take as ordered for the FULL length of time although you should start to feel better in 24-48 hours. * Monitor Temp. Follow up if fever develops * Encourage fluids, water, Gatorade, PowerAde, pedialyte if /toddler/child * warm compress often helps when placed over ear * sleep elevated * flonase 2 sprays each nostril daily but may take 2-3 days to notice improvement with it. throat * Monitor Temp. Follow up if fever develops * Encourage fluids, water, gatorade, powerade, pedialyte if /toddler/child * warm salt water gargles * warm fluids * sore throat lozenges * sleep elevated * humidifier/vaporizer * * Your throat swab was sent for culture. Those results are typically sent to your primary care. Be sure to follow up in 2-3 days if no improvement so they can review those results and treat if necessary. If you don't have primary care, I recommend you get one but in the mean time, you will have to return to a walk in clinic. Prescriptions: Amoxicillin [Amoxicillin 500mg Cap] 500 mg PO TID #30 cap Fluticasone Propionate [Flonase 50mcg nasal spray 16gm] 2 spr NS DAILY #1 bottle Referrals: Rafita Sims MD [Primary Care Provider] - (Immediately for new or worsening symptoms, no noticeable improvement in 48-72 hours AND in 10-14 days to ensure ears are back to baseline.) Time of Disposition: 20:05 Medical Decision Making - Ortiz Inquiry Pt receiving controlled substance: No Vital Signs: 05/11/17 19:23 Temperature 98.2 F Temperature Source Temporal Artery Scan Pulse Rate [Right Brachial] 111 H Respiratory Rate 20 Blood Pressure [Right Arm] 136/77 Blood Pressure Mean [Right Arm] 96 Blood Pressure Source [Right Arm] Automatic Cuff Blood Pressure Position [Right Arm] Sitting 02 Sat by Pulse Oximetry 99 Oxygen Delivery Method Room Air - Lab Data Lab results reviewed: Yes: I reviewed the patient's lab results. strep negative [facility] [place] HPI - General Stated complaint: LEON,nose in ear,sore throat Time Seen by Provider: 05/11/17 19:45 Mode of Arrival: Family Vehicle Source of Information: Patient Limitations: No Limitations Description of Symptoms (Recalled from Triage Doc. by RN): C/O HEADACHE SINCE LAST PM WHICH HAS WORSENED DURING THE DAY TODAY. STATES SHE HAS A HEARTBEAT OR BUZZING NOISE IN HER EAR X FEW DAYS. C/O THROAT FEELS LIKE A BURNOING MATCH IN IT WHICH STARTED TODAY HEENT Symptoms (Recalled from RN notes): Yes Resp Symptoms (Recalled from RN notes): No Skin Symptoms (Recalled from RN notes): No MS Symptoms (Recalled from RN notes): No Functional Status (Recalled from RN notes): N/A - History of Present Illness Provider Complaint: c/o right ear pain, pressure, buzzing, throbbing x 2-3 days with headache starting last night and sore throat starting this morning. Headache primarily frontal and joey temporals. Worse last night. somewhat better today. Tylenol 650mg last night and 975mg this morning around 10-11am. Tried caffeine because thought possibly due to lack of it. Sore throat worsening throughout day. No known sick contacts. No fever. - Related Data Previous Rx's Medication Instructions Recorded Amoxicillin [Amoxicillin 500mg 500 mg PO TID #30 cap 05/11/17 Cap] Fluticasone Propionate [Flonase
--- NOTE | 2017-05-11 19:52 | ED_ITS ---
[facility] [place]: Left otitis media Qualifiers: Otitis media type: suppurative Chronicity: acute Recurrence: not specified as recurrent Spontaneous tympanic membrane rupture: without spontaneous rupture Qualified Code(s): H66.002 - Acute suppurative otitis media without spontaneous rupture of ear drum, left ear Acute pharyngitis Qualifiers: Pharyngitis/tonsillitis etiology: unspecified etiology Qualified Code(s): J02.9 - Acute pharyngitis, unspecified Disposition: Home, Self-Care Condition on Discharge: Good Instructions: DI for Otitis Media (Middle Ear Infection)-Child, DI for Viral Pharyngitis Additional Instructions: ear * Start antibiotic NAIMA and be sure to take as ordered for the FULL length of time although you should start to feel better in 24-48 hours. * Monitor Temp. Follow up if fever develops * Encourage fluids, water, Gatorade, PowerAde, pedialyte if /toddler/ child * warm compress often helps when placed over ear * sleep elevated * flonase 2 sprays each nostril daily but may take 2-3 days to notice improvement with it. throat * Monitor Temp. Follow up if fever develops * Encourage fluids, water, gatorade, powerade, pedialyte if /toddler/ child * warm salt water gargles * warm fluids * sore throat lozenges * sleep elevated * humidifier/vaporizer * * Your throat swab was sent for culture. Those results are typically sent to your primary care. Be sure to follow up in 2-3 days if no improvement so they can review those results and treat if necessary. If you don't have primary care , I recommend you get one but in the mean time, you will have to return to a walk in clinic. Prescriptions: Amoxicillin [Amoxicillin 500mg Cap] 500 mg PO TID #30 cap Fluticasone Propionate [Flonase 50mcg nasal spray 16gm] 2 spr NS DAILY #1 bottle Referrals: Rafita Sims MD [Primary Care Provider] - (Immediately for new or worsening symptoms, no noticeable improvement in 48-72 hours AND in 10-14 days to ensure ears are back to baseline.) Time of Disposition: 20:05 Medical Decision Making - Ortiz Inquiry Pt receiving controlled substance: No Vital Signs: 05/11/17 19:23 Temperature 98.2 F Temperature Source Temporal Artery Scan Pulse Rate [Right Brachial] 111 H Respiratory Rate 20 Blood Pressure [Right Arm] 136/77 Blood Pressure Mean [Right Arm] 96 Blood Pressure Source [Right Arm] Automatic Cuff Blood Pressure Position [Right Arm] Sitting 02 Sat by Pulse Oximetry 99 Oxygen Delivery Method Room Air - Lab Data Lab results reviewed: Yes: I reviewed the patient's lab results. strep negative [facility] [place] - General Stated complaint: LEON,nose in ear,sore throat Time Seen by Provider: 05/11/17 19:45 Mode of Arrival: Family Vehicle Source of Information: Patient Limitations: No Limitations Description of Symptoms (Recalled from Triage Doc. by RN): C/O HEADACHE SINCE LAST PM WHICH HAS WORSENED DURING THE DAY TODAY. STATES SHE HAS A HEARTBEAT OR BUZZING NOISE IN HER EAR X FEW DAYS. C/O THROAT FEELS LIKE A BURNOING MATCH IN IT WHICH STARTED TODAY HEENT Symptoms (Recalled from RN notes): Yes Resp Symptoms (Recalled from RN notes): No Skin Symptoms (Recalled from RN notes): No MS Symptoms (Recalled from RN notes): No Functional Status (Recalled from RN notes): N/A - History of Present Illness Provider Complaint: c/o right ear pain, pressure, buzzing, throbbing x 2-3 days with headache starting last night and sore throat
[2017-05-11 20:01] LABS: UTC Strep Screen (Rapid) Negative (Negative)
[2017-05-11 20:06] VITALS: BP 132/70; PULSE 100; RESP 20; TEMP 36.8; O2SAT 98
== END 2017-05-11 20:09 | disposition home or self-care (01) ==
PROVIDERS: Emergency Provider Nurse Practitioner Family; Family Provider Internal Medicine Adolescent Medicine; PCP Internal Medicine Adolescent Medicine
DX: H66.002 Acute suppurative otitis media without spontaneous rupture of ear drum, left ear (principal); J02.9 Acute pharyngitis, unspecified; R56.9 Unspecified convulsions; Z90.49 Acquired absence of other specified parts of digestive tract
CPT/HCPCS: 87880; 99201

== ENCOUNTER 2017-05-15 14:31 | Emergency (ER) | payer MEDICAID, SELFPAY ==
[2017-05-15 15:07] VITALS: BP 110/65; PULSE 72; RESP 20; TEMP 36.8; O2SAT 98
--- NOTE | 2017-05-15 15:47 | HMH.EDUTC ---
[facility] [place] Disposition Clinical Impression: Vaginal yeast infection UTI (urinary tract infection) Qualifiers: Urinary tract infection type: site unspecified Hematuria presence: without hematuria Qualified Code(s): N39.0 - Urinary tract infection, site not specified Disposition: Home, Self-Care Condition on Discharge: Good Instructions: DI for Vaginal Yeast Infection, Vaginal Yeast Infection, Urinary Tract Infection Additional Instructions: Take medication as prescribed REturn if needed FOllow up with family doctor in 24-48 hours if no improvement or worsening of symptoms Follow up with OBGYN for vaginal exam Make sure to wipe front to back, urinated before and after sexual intercoarse, avoid bubble baths Prescriptions: Fluconazole [Diflucan] 150 mg PO ONCE #2 tab Sulfamethoxazole/Trimethoprim [Bactrim DS tablet] 1 each PO BID #20 tab Referrals: Rafita Sims MD [Primary Care Provider] - As needed Time of Disposition: 16:15 Medical Decision Making - Medical Records Medical records reviewed: Yes: I reviewed the patient's medical records. - Ortiz Inquiry Pt receiving controlled substance: No Ortiz was queried for this patient: No Vital Signs: 05/15/17 15:07 Temperature 98.2 F Temperature Source Temporal Artery Scan Pulse Rate [Right Brachial] 72 Respiratory Rate 20 Blood Pressure [Right Arm] 110/65 Blood Pressure Mean [Right Arm] 80 Blood Pressure Source [Right Arm] Automatic Cuff Blood Pressure Position [Right Arm] Sitting 02 Sat by Pulse Oximetry 98 Oxygen Delivery Method Room Air - Lab Data Lab results reviewed: Yes: I reviewed the patient's lab results. - Reevaluation(s) Time: 16:08 Reevaluation #1: Patient state that she has had several Yeast infections over the last couple of months and state that this one is simular to her last one Recommended that patient has a vaginal exam State that she will follow up with OBGYN for further examination [facility] [place] HPI - General Stated complaint: Poss Yeast infection Time Seen by Provider: 05/15/17 15:35 Mode of Arrival: Family Vehicle Source of Information: Patient Limitations: No Limitations Description of Symptoms (Recalled from Triage Doc. by RN): c/o vaginal itching,burning and swelling x 2 days HEENT Symptoms (Recalled from RN notes): No Resp Symptoms (Recalled from RN notes): No Skin Symptoms (Recalled from RN notes): No MS Symptoms (Recalled from RN notes): No Functional Status (Recalled from RN notes): n/a - History of Present Illness Provider Complaint: Patient presents with vaginal itching, burning, dysparunia, and dry crusty discharge for two days. One day ago she started to have dysuria as well. She denies abdominal pain, fevers, back pain, n/v/d. Patient state that she has been having unprotected sex and had a yeast infection about a month ago that required treatment - Related Data Home Medications Medication Instructions Recorded Confirmed Amoxicillin [Amoxicillin 500mg 500 mg PO TID 05/15/17 05/15/17 Cap] Fluticasone Propionate [Flonase 2 spr NS DAILY 05/15/17 05/15/17 50mcg nasal spray 16gm] Previous Rx's Medication Instructions Recorded Fluconazole [Diflucan] 150 mg PO ONCE #2 tab 05/15/17 Sulfamethoxazole/Trimethoprim 1 each PO BID #20 tab 05/15/17 [Bactrim DS tablet] Allergies Allergy/AdvReac Type Severity Reaction Status Date / Time No Known Allergies Allergy Verified 02/27/17 08:28 - Worker's Comp Is this a Worker's Comp case?: No [facility] History I have reviewed the patient's past medical history: Yes Medical History: Reports:: Seizures Denies:: Cancer, Diabetes Mellitus Type 1, Diabetes Mellitus Type 2, Hypertension, MRSA Other Medical History: Denies: Blood Transfusion Reaction Comment: smoker Other Surgeries: Yes: , Other (cholecystectomy, surgeries on feet ) Amputation: No Fractures: No Comment: D&C - Social History Smoking Status: Current every day smoker Tobacco Type: c
--- NOTE | 2017-05-15 15:51 | ED_ITS ---
[facility] [place] Impression: Vaginal yeast infection UTI (urinary tract infection) Qualifiers: Urinary tract infection type: site unspecified Hematuria presence: without hematuria Qualified Code(s): N39.0 - Urinary tract infection, site not specified Disposition: Home, Self-Care Condition on Discharge: Good Instructions: DI for Vaginal Yeast Infection, Vaginal Yeast Infection, Urinary Tract Infection Additional Instructions: Take medication as prescribed REturn if needed FOllow up with family doctor in 24-48 hours if no improvement or worsening of symptoms Follow up with OBGYN for vaginal exam Make sure to wipe front to back, urinated before and after sexual intercoarse, avoid bubble baths Prescriptions: Fluconazole [Diflucan] 150 mg PO ONCE #2 tab Sulfamethoxazole/Trimethoprim [Bactrim DS tablet] 1 each PO BID #20 tab Referrals: Rafita Sims MD [Primary Care Provider] - As needed Time of Disposition: 16:15 Medical Decision Making - Medical Records Medical records reviewed: Yes: I reviewed the patient's medical records. - Ortiz Inquiry Pt receiving controlled substance: No Ortiz was queried for this patient: No Vital Signs: 05/15/17 15:07 Temperature 98.2 F Temperature Source Temporal Artery Scan Pulse Rate [Right Brachial] 72 Respiratory Rate 20 Blood Pressure [Right Arm] 110/65 Blood Pressure Mean [Right Arm] 80 Blood Pressure Source [Right Arm] Automatic Cuff Blood Pressure Position [Right Arm] Sitting 02 Sat by Pulse Oximetry 98 Oxygen Delivery Method Room Air - Lab Data Lab results reviewed: Yes: I reviewed the patient's lab results. - Reevaluation(s) Time: 16:08 Reevaluation #1: Patient state that she has had several Yeast infections over the last couple of months and state that this one is simular to her last one Recommended that patient has a vaginal exam State that she will follow up with OBGYN for further examination [facility] [place] - General Stated complaint: Poss Yeast infection Time Seen by Provider: 05/15/17 15:35 Mode of Arrival: Family Vehicle Source of Information: Patient Limitations: No Limitations Description of Symptoms (Recalled from Triage Doc. by RN): c/o vaginal itching, burning and swelling x 2 days HEENT Symptoms (Recalled from RN notes): No Resp Symptoms (Recalled from RN notes): No Skin Symptoms (Recalled from RN notes): No MS Symptoms (Recalled from RN notes): No Functional Status (Recalled from RN notes): n/a - History of Present Illness Provider Complaint: Patient presents with vaginal itching, burning, dysparunia, and dry crusty discharge for two days. One day ago she started to have dysuria as well. She denies abdominal pain, fevers, back pain, n/v/d. Patient state that she has been having unprotected sex and had a yeast infection about a month ago that required treatment - Related Data Home Medications Medication Instructions Recorded Confirmed Amoxicillin [Amoxicillin 500mg 500 mg PO TID 05/15/17 05/15/17 Cap] Fluticasone Propionate [Flonase 2 spr NS DAILY 05/15/17 05/15/17 50mcg nasal spray 16gm] Previous Rx's Medication Instructions Recorded Fluconazole [Diflucan] 150 mg PO ONCE #2 tab 05/15/17 Sulfamethoxazole/Trimethoprim 1 each PO BID #20 tab 05/15/17 [Bactrim DS tablet] Allergies Allergy/AdvReac Ty
[2017-05-15 16:02] LABS: Apearance,Urine Clear (Clear); Color,Urine Yellow (Yellow); UTC Pregnancy Test, Urine Negative (Negative)
[2017-05-15 16:09] LABS: Bilirubin,Urine Negative (Negative); Blood, Urine 1+ (Negative); Glucose,Urine (UA) Negative (Negative); Ketones,Urine Negative (Negative); Protein,Urine Negative (Negative); Urobilinogen,Urine 0.2 EU/dl (0.2)
[2017-05-15 16:10] LABS: UTC Leukocyte Esterase,Urine 1+ (Negative); UTC Nitrate,Urine Negative (Negative)
[2017-05-15 16:30] VITALS: BP 110/65; PULSE 72; RESP 20; TEMP 36.8; O2SAT 98
== END 2017-05-15 16:31 | disposition home or self-care (01) ==
PROVIDERS: Emergency Provider Nurse Practitioner; Family Provider Internal Medicine Adolescent Medicine; PCP Internal Medicine Adolescent Medicine
DX: N39.0 Urinary tract infection, site not specified (principal); F17.210 Nicotine dependence, cigarettes, uncomplicated; R56.9 Unspecified convulsions; Z90.49 Acquired absence of other specified parts of digestive tract
CPT/HCPCS: 81003; 81025; 87086; 99201

== ENCOUNTER → 2017-06-05 11:37 | Outpatient (CLI) | payer MEDICAID, SELFPAY ==
[2017-06-05 12:30] LABS: Basophils % 0.5 % (0.1-2.0); Eosinophils # 0.3 K/mm3 (0.0-0.4); Eosinophils % 4.2 % (0.1-12.0); Hematocrit 38.2 % (37.0-47.0); Hemoglobin 12.7 g/dL (12.2-16.2); Lymphocytes % 40.9 K/mm3 (10-50); Mean Corpuscular HGB Conc 33.1 g/dL (31.8-35.4); Mean Corpuscular Volume 87.8 fl (81-99); Mean Platelet Volume 7.6 fl (7.4-10.4); Monocytes # 0.4 K/mm3 (0.1-1.0); Monocytes % 5.7 % (1.7-9.3); Neutrophils # 3.6 K/mm3 (1.8-7.8); Neutrophils % 48.7 % (37.0-80.0); Platelet Count 313 K/mm3 (142-424); Red Blood Count 4.36 M/mm3 (4.20-5.40); Red Cell Distribution Width 13.1 % (11.5-17.5); White Blood Count 7.4 K/mm3 (4.5-13.0)
[2017-06-05 13:24] LABS: Alanine Aminotransferase 23 U/L (12-78); Albumin Level 3.2 gm/dL (3.4-5.0); Alkaline Phosphatase 106 U/L (46-116); Anion Gap 13.2 mEq/L (5-15); Aspartate Amino Transferase 17 U/L (15-37); Bilirubin,Total 0.1 mg/dL (0.2-1.0); Blood Urea Nitrogen 6 mg/dL (7-18); Calcium 8.8 mg/dL (8.5-10.1); Carbon Dioxide 27 mmol/L (21.0-32.0); Chloride 104 mmol/L (98-107); Estimated Glomerular Filt Rate 203 ml/min (>60); GFR (African American) 246 ML/MIN (>60); Globulin 3.1 gm/dl (1.3-3.2); Glucose 72 mg/dL (74-106); Potassium 4.2 mmoL/L (3.5-5.1); Sodium 140 mmol/L (136-145); Thyroid Stimulating Hormone 2.57 uIU/ml (0.516-4.13); Total Protein,Serum 6.3 gm/dL (6.4-8.2)
== END ==
PROVIDERS: Visit Provider Nurse Practitioner Family
DX: R63.5 Abnormal weight gain (principal)
CPT/HCPCS: 36415; 80053; 84443; 85025

== ENCOUNTER → 2017-06-24 15:33 | Outpatient (CLI) | payer MEDICAID, SELFPAY ==
[2017-06-24 16:06] LABS: Basophils % 0.3 % (0.1-2.0); Eosinophils # 0.4 K/mm3 (0.0-0.4); Eosinophils % 3.7 % (0.1-12.0); Hematocrit 38.4 % (37.0-47.0); Hemoglobin 12.9 g/dL (12.2-16.2); Lymphocytes % 35.5 K/mm3 (10-50); Mean Corpuscular HGB Conc 33.5 g/dL (31.8-35.4); Mean Corpuscular Hemoglobin 29.2 pg (27.0-31.2); Mean Corpuscular Volume 87.1 fl (81-99); Mean Platelet Volume 7.6 fl (7.4-10.4); Monocytes # 0.4 K/mm3 (0.1-1.0); Monocytes % 3.4 % (1.7-9.3); Neutrophils # 6.5 K/mm3 (1.8-7.8); Neutrophils % 57.1 % (37.0-80.0); Platelet Count 325 K/mm3 (142-424); Red Blood Count 4.41 M/mm3 (4.20-5.40); Red Cell Distribution Width 13.4 % (11.5-17.5); White Blood Count 11.4 K/mm3 (4.5-13.0)
[2017-06-24 18:18] LABS: HCG,Quantitative 82 mIU/mL
[2017-06-26 13:01] LABS: HIV Screen 4th Generation wRfx Non Reactive (Non Reactive); Hepatitis B Surface Antigen Negative (Negative); Hepatitis C Antibody <0.1 s/co ratio (0.0-0.9); Rapid Plasma Reagin Ab Titer Non Reactive (NonRea<1:1); Rubella Antibodies, IgG 2.93 index (Immune >0.99)
[2017-06-27 05:20] LABS: Neisseria gonorrhoeae, NAA Negative (Negative)
== END ==
PROVIDERS: Family Provider Internal Medicine Adolescent Medicine; PCP Internal Medicine Adolescent Medicine; Visit Provider Nurse Practitioner Obstetrics & Gynecology
DX: Z01.419 Encounter for gynecological examination (general) (routine) without abnormal findings (principal); Z32.00 Encounter for pregnancy test, result unknown
CPT/HCPCS: 36415; 84702; 85025; 86592; 86703; 86762; 86850; 87340; 87380; 87491; 87591; G0432

== ENCOUNTER → 2017-06-29 12:03 | Outpatient (CLI) | payer MEDICAID, SELFPAY ==
[2017-06-29 14:49] LABS: HCG,Quantitative 792 mIU/mL
== END ==
PROVIDERS: Family Provider Internal Medicine Adolescent Medicine; PCP Internal Medicine Adolescent Medicine; Visit Provider Nurse Practitioner Obstetrics & Gynecology
DX: Z32.00 Encounter for pregnancy test, result unknown (principal)
CPT/HCPCS: 36415; 84702

== ENCOUNTER → 2017-07-03 09:15 | Outpatient (CLI) | payer MEDICAID, SELFPAY ==
--- NOTE | 2017-07-03 09:16 | US_ITS ---
US OB transvaginal Ordering Physician: Pavel Baez MD Patient Age: 22 years: Female HISTORY: ITS.REASON: US OB Dates TECHNIQUE: Transvaginal pelvic ultrasound. Early COMPARISON :February 23, 2017 FINDINGS . There is a early intrauterine gestation noted . Yolk sac identified. = 2.8 mm Gestational sac measuring 9.2 mm x 5.6 mm. X 8mm=7.6mm estimate near 4.5 week size No pole evidentl. & Too Early to identify heartbeat. Left ovary 3 cm x 2.35 cm x 2.8 cm. Right ovary 2.3 cm x 1.8 cm x 1.9 cm. No fluid in cul-de-sac. No definitive corpus luteum cyst evident IMPRESSION: Single early intrauterine gestation. Yolk sac identified. . No cardiac activity nor pole evident as of yet Small very early gestational sac (estimated near 4.5 week size) Ovaries appear normal.
== END ==
PROVIDERS: Family Provider Internal Medicine Adolescent Medicine; PCP Internal Medicine Adolescent Medicine; Visit Provider Nurse Practitioner Obstetrics & Gynecology
DX: O26.841 Uterine size-date discrepancy, first trimester (principal)
CPT/HCPCS: 76830

== ENCOUNTER 2017-10-24 23:20 | Outpatient (CLI) | payer MEDICAID, SELFPAY ==
[2017-10-24 23:30] VITALS: BMI 35.3
[2017-10-24 23:38] LABS: Microscopic, Urine URINE MICROSCOPIC (MICROSCOPIC)
[2017-10-24 23:39] LABS: Appearance,Urine SL CLOUDY (Clear); Bilirubin,Urine Negative (Negative); Blood, Urine TRACE-I (Negative); Color,Urine YELLOW (Yellow); Glucose,Urine (UA) Negative (Negative); Ketones,Urine Negative (Negative); Leukocyte Esterase,Urine 2+ (Negative); Nitrate,Urine Negative (Negative); Protein,Urine Negative (Negative); Urobilinogen,Urine 0.2 EU/dl (0.2)
[2017-10-24 23:47] LABS: Amphetamine/Metha Screen,Urine Negative ng/mL (<1000); Barbiturates Screen,Urine Negative ng/mL (<200); Benzodiazepines Screen,Urine Negative ng/mL (<200); Cannabinoid Screen,Urine Negative ng/mL (<50); Cocaine Screen,Urine Negative ng/mL (<300); Methadone Screen,Urine Negative ng/mL (<300); Opiate Screen,Urine Negative ng/mL (<300); Phencyclidine Screen,Urine Negative ng/mL (<25)
[2017-10-25 00:03] VITALS: BP 103/60; PULSE 95; RESP 18; TEMP 36.6; O2SAT 97; BMI 35.3
[2017-10-25 00:27] LABS: Bacteria,Urine 2+ /lpf
== END 2017-10-25 00:40 | disposition home or self-care (01) ==
LOC: OBOUT 23:23 → OB 23:26
PROVIDERS: PCP Internal Medicine Adolescent Medicine; Visit Provider Nurse Practitioner Obstetrics & Gynecology
DX: O26.892 Other specified pregnancy related conditions, second trimester (principal); Z3A.21 21 weeks gestation of pregnancy; R10.30 Lower abdominal pain, unspecified; M54.5 Low back pain
CPT/HCPCS: 59025; 80305; 81001; 87086

== ENCOUNTER 2017-11-06 21:24 | Outpatient (CLI) | payer MEDICAID, SELFPAY ==
[2017-11-06 22:06] VITALS: BMI 35.9
[2017-11-06 22:30] VITALS: BP 103/51; PULSE 18; RESP 18; TEMP 36.5; BMI 35.9
[2017-11-06 22:46] LABS: Microscopic, Urine URINE MICROSCOPIC (MICROSCOPIC)
[2017-11-06 23:06] LABS: Appearance,Urine SL CLOUDY (Clear); Bilirubin,Urine Negative (Negative); Blood, Urine TRACE-L (Negative); Color,Urine YELLOW (Yellow); Glucose,Urine (UA) Negative (Negative); Ketones,Urine Negative (Negative); Leukocyte Esterase,Urine 2+ (Negative); Nitrate,Urine Negative (Negative); Protein,Urine Negative (Negative); Urobilinogen,Urine 0.2 EU/dl (0.2)
[2017-11-06 23:11] LABS: Calcium Oxalate Crystals,Urine 2+ /lpf; Squamous Epithelial Cell,Urine 20-50 #/hpf (0-5)
== END 2017-11-07 00:40 | disposition home or self-care (01) ==
LOC: OBOUT 21:25 → OB 21:25
PROVIDERS: PCP Internal Medicine Adolescent Medicine; Visit Provider Nurse Practitioner Obstetrics & Gynecology
DX: O26.892 Other specified pregnancy related conditions, second trimester (principal); Z3A.23 23 weeks gestation of pregnancy; R10.30 Lower abdominal pain, unspecified; M54.5 Low back pain
CPT/HCPCS: 59025; 81001; 87086

== ENCOUNTER 2017-11-21 18:45 | Outpatient (CLI) | payer MEDICAID, SELFPAY ==
[2017-11-21 19:07] VITALS: BMI 35.9
[2017-11-21 19:18] LABS: Microscopic, Urine URINE MICROSCOPIC (MICROSCOPIC)
[2017-11-21 19:20] VITALS: BP 94/67; PULSE 67; RESP 18; TEMP 36.6
[2017-11-21 19:21] VITALS: BMI 30.9
[2017-11-21 19:21] LABS: Appearance,Urine SL CLOUDY (Clear); Bilirubin,Urine Negative (Negative); Blood, Urine TRACE-L (Negative); Color,Urine YELLOW (Yellow); Glucose,Urine (UA) Negative (Negative); Ketones,Urine 2+ (Negative); Leukocyte Esterase,Urine TRACE (Negative); Nitrate,Urine Negative (Negative); PH,Urine 6.5 (5.0-8.5); Protein,Urine TRACE (Negative); Specific Gravity, Urine >= 1.030 (1.005-1.030); Urobilinogen,Urine 0.2 EU/dl (0.2)
[2017-11-21 19:23] LABS: Amorphous Sediment,Urine Trace /lpf; Mucus,Urine 2+ /lpf; RBC,Urine Occasional #/hpf (0-3)
[2017-11-21 19:34] LABS: Fetal Membrane Rupture (Rapid) Negative (Negative)
== END 2017-11-21 20:12 | disposition home or self-care (01) ==
LOC: OBOUT 18:47 → OB 18:48
PROVIDERS: PCP Internal Medicine Adolescent Medicine; Visit Provider Obstetrics & Gynecology
DX: O26.892 Other specified pregnancy related conditions, second trimester (principal); Z3A.25 25 weeks gestation of pregnancy
CPT/HCPCS: 59025; 81001; 84112

== ENCOUNTER → 2018-06-08 13:21 | Outpatient (CLI) | payer MEDICAID, SELFPAY ==
[2018-06-08 13:55] LABS: Basophils % 0.5 % (0.1-2.0); Eosinophils # 0.2 K/mm3 (0.0-0.4); Eosinophils % 3.1 % (0.1-12.0); Hematocrit 39.5 % (37.0-47.0); Hemoglobin 12.9 g/dL (12.2-16.2); Lymphocytes # 2.5 K/mm3 (0.7-4.5); Lymphocytes % 32.4 % (10-50); Mean Corpuscular HGB Conc 32.7 g/dL (31.8-35.4); Mean Corpuscular Hemoglobin 27.7 pg (27.0-31.2); Mean Corpuscular Volume 84.9 fl (81-99); Mean Platelet Volume 7.6 fl (7.4-10.4); Monocytes # 0.4 K/mm3 (0.1-1.0); Monocytes % 5.2 % (1.7-9.3); Neutrophils # 4.4 K/mm3 (1.8-7.8); Neutrophils % 58.7 % (37.0-80.0); Platelet Count 258 K/mm3 (142-424); Red Blood Count 4.66 M/mm3 (4.20-5.40); Red Cell Distribution Width 13.4 % (11.5-17.5); White Blood Count 7.6 K/mm3 (4.8-10.8)
[2018-06-08 21:08] LABS: Alanine Aminotransferase 41 U/L (12-78); Albumin Level 3.6 gm/dL (3.4-5.0); Albumin/Globulin Ratio 1.1 (1.1-1.8); Alkaline Phosphatase 119 U/L (46-116); Anion Gap 14.3 mEq/L (5-15); Aspartate Amino Transferase 18 U/L (15-37); Bilirubin,Total 0.2 mg/dL (0.2-1.0); Blood Urea Nitrogen 7 mg/dL (7-18); Calcium 9.1 mg/dL (8.5-10.1); Carbon Dioxide 28 mmol/L (21.0-32.0); Chloride 103 mmol/L (98-107); Creatinine,Serum 0.51 mg/dL (0.55-1.02); Estimated Glomerular Filt Rate 152 ml/min (>60); GFR (African American) 184 ML/MIN (>60); Globulin 3.2 gm/dl (1.3-3.2); Glucose 79 mg/dL (74-106); Potassium 4.3 mmoL/L (3.5-5.1); Sodium 141 mmol/L (136-145); Thyroid Stimulating Hormone 1.54 uIU/ml (0.358-3.740); Total Protein,Serum 6.8 gm/dL (6.4-8.2)
== END ==
PROVIDERS: Visit Provider Internal Medicine Adolescent Medicine
DX: L65.9 Nonscarring hair loss, unspecified (principal); R53.83 Other fatigue
CPT/HCPCS: 36415; 80053; 84443; 85025

== ENCOUNTER → 2019-06-14 11:37 | Outpatient (CLI) | payer OTHER, SELFPAY ==
[2019-06-14 13:08] LABS: Alanine Aminotransferase 17 U/L (12-78); Albumin/Globulin Ratio 1.6 (1.1-1.8); Alkaline Phosphatase 78 U/L (38-126); Anion Gap 7.1 mEq/L (5-15); Aspartate Amino Transferase 21 U/L (14-36); Blood Urea Nitrogen 5 mg/dl (7-17); Calcium 9.1 mg/dl (8.4-10.2); Carbon Dioxide 27 mmol/L (22.0-30.0); Chloride 104 mmol/L (98-107); Estimated Glomerular Filt Rate 200 ml/min (>60); GFR (African American) 242 ML/MIN (>60); Globulin 2.5 g/dL (1.3-3.2); Glucose 83 mg/dl (74-100); Potassium 4.1 mmoL/L (3.5-5.1); Sodium 134 mmol/L (136-145); Total Protein,Serum 6.5 g/dl (6.3-8.2)
[2019-06-14 13:09] LABS: Bilirubin,Total < 0.1 mg/dl (0.2-1.3)
== END ==
PROVIDERS: Visit Provider Internal Medicine Adolescent Medicine
DX: R51 Headache (principal)
CPT/HCPCS: 36415; 80053

== ENCOUNTER 2019-09-30 18:20 | Emergency (ER) | payer OTHER, SELFPAY ==
[2019-09-30 18:49] VITALS: BP 107/70; PULSE 71; RESP 20; TEMP 36.7; O2SAT 99; BMI 34.8
--- NOTE | 2019-09-30 19:27 | HMH.EDUTC ---
[facility] [place] Clinical Impression: Viral upper respiratory infection Disposition: Home, Self-Care Condition on Discharge: Good Instructions: DI for Viral Upper Respiratory Infection -- Adult, DI for Viral Syndrome, Preventing the Spread of Coronavirus Discharge Instructions Additional Instructions: *Monitor Temp, Over the counter Motrin or Tylenol as directed/as needed Tylenol every 4 hours and Motrin every 6 hours (as long as your family doctor has told you that you can take it) for fever or pain. and straight to ER if unable to lower temp less than 101.0 after medication given *Warm salt water gargles may help to soothe the throat *Throat Lozenges *Warm fluids like tea with honey may help to soothe the throat *Sleep elevated *Humidifier/Vaporizer *Flonase 2 sprays in each nostril daily but be aware that it may take 2-3 days before you notice improvement You was given handout with instruction on Self Quarantine and self isolation if your COVID test is positive Please follow instrucitons to help prevent the spread of COVID 19 Call back to the [facility] on Thursday to see if your COVID test results are back Follow up IMMEDIATELY for new or worsening symptoms or no Noticeable improvement over the next 48-72 hours. 911 for difficulty breathing or swallowing Prescriptions: Fluticasone Propionate [Flonase 50mcg nasal spray 16gm] 1 - 2 spr NS DAILY #1 bottle Transmission Status: Pending to [id number] Referrals: Rafita Sims MD [Primary Care Provider] - As needed Time of Disposition: 19:37 Medical Decision Making - Ortiz Inquiry Pt receiving controlled substance: No Ortiz was queried for this patient: No Vital Signs: 09/30/19 18:49 Temperature 98.1 F Temperature Source Oral Pulse Rate [Left Brachial] 71 Respiratory Rate 20 Blood Pressure [Left Arm] 107/70 L Blood Pressure Mean [Left Arm] 82 Blood Pressure Source [Left Arm] Automatic Cuff Blood Pressure Position [Left Arm] Sitting 02 Sat by Pulse Oximetry 99 Oxygen Delivery Method Room Air Orders (Tests/Meds): ORDERS Category Date Time Status COVID [SARS-CoV-2, [place] ([place])] Stat Lab 09/30/19 18:59 Received [facility] [place] HPI - General Stated complaint: congestion ear pressure vomitting diarrhea Time Seen by Provider: 09/30/19 19:28 Mode of Arrival: Ambulatory Source of Information: Patient Limitations: No Limitations Description of Symptoms (Recalled from Triage Doc. by RN): PATIENT C/O CHEST AND HEAD PRESSURE AND COUGH X 2 DAYS, AND DIARRHEA/VOMITING THAT STARTED TODAY. HER PUPPY SITTER TESTED POSITIVE FOR COVID TODAY AND SHE WAS AROUND HER ON THURSDAY HEENT Symptoms (Recalled from RN notes): Yes Resp Symptoms (Recalled from RN notes): Yes Skin Symptoms (Recalled from RN notes): No MS Symptoms (Recalled from RN notes): No Functional Status (Recalled from RN notes): WNL - History of Present Illness Provider Complaint: Patient states that she was around her teenage babysitter that recently and she just notified her that she tested positive for COVID19 State that she is currently taking Keflex but she has been having diarrhea, sore throat, headache and nasal congestion along with diarrhea on and off States that she started having body aches and chills today so she came in to get checked for COVID - Related Data Home Medications Medication Instructions Recorded Confirmed cephALEXin [Keflex 500mg Cap] 500 mg PO BID 09/30/19 09/30/19 Previous Rx's Medication Instructions Recorded Fluticasone Propionate [Flonase 1 - 2 spr NS DAILY #1 bottle 09/30/19 50mcg nasal spray 16gm] Allergies Allergy/AdvReac Type Severity Reaction Status Date / Time No Known Allergies Allergy Verified 03/10/19 22:48 - Worker's Comp Is this a Worker's Comp case?: No [facility] History - Hepatitis A Screen Drug use history?: No High risk sexual behaviors?: No History of sexually transmitted infection?: No Currently employed?: No Childcare worker?: No Do you have indo
[2019-09-30 19:37] VITALS: BP 107/70; PULSE 71; RESP 20; TEMP 36.7; O2SAT 99
[2019-10-02 09:46] LABS: Covid-19 Nasal PCR Sendout UK Not Detected
== END 2019-09-30 19:41 | disposition home or self-care (01) ==
PROVIDERS: Emergency Provider Nurse Practitioner; PCP Internal Medicine Adolescent Medicine
DX: J06.9 Acute upper respiratory infection, unspecified (principal); Z20.828 Contact with and (suspected) exposure to other viral communicable diseases; F17.210 Nicotine dependence, cigarettes, uncomplicated
CPT/HCPCS: 99201; U0003

== ENCOUNTER → 2021-01-08 15:46 | Outpatient (CLI) | payer OTHER, SELFPAY | PROVIDERS: Visit Provider Nurse Practitioner Family | DX: R30.0 Dysuria (principal) | CPT/HCPCS: 87086 ==

== ENCOUNTER 2021-02-23 11:47 | Emergency (ER) | payer OTHER, SELFPAY ==
--- NOTE | 2021-02-23 13:37 | HMH.EDUTC ---
[facility] [place]ression: Viral syndrome, Exposure to COVID-19 virus Disposition: Home, Self-Care Condition on Discharge: Good Instructions: DI for Viral Syndrome, DI for COVID-19 (Suspected or Confirmed ), Preventing the Spread of Coronavirus Discharge Instructions Additional Instructions: Drink plenty of fluids. Take tylenol or ibuprofen for pain or fever. Take the medications as directed. Follow up with your regular doctor. GO TO THE ER FOR ANY WORSENING SYMPTOMS Quarantine until you know the results of your covid-19 test. If it is positive, the health department should call you and give you further instructions about your length of Quarantine and other things. Notify your school or workplace of your results and follow their instructions regarding return to work/school. Prescriptions: Brompheniramine/Pseudoephed/Dm [Bromfed Dm Cough Syrup] 5 ml PO Q6HP PRN #240 ml PRN Reason: Cough Transmission Status: Received by [id number] Referrals: Rafita Sims MD [Primary Care Provider] - Forms: Work/School Release Time of Disposition: 14:14 Medical Decision Making - Medical Records Medical records reviewed: No: I reviewed the patient's medical records. - Ortiz Inquiry Pt receiving controlled substance: No Vital Signs: 02/23/21 13:46 02/23/21 14:44 Temperature 98.6 F 98.6 F Temperature Source Oral Pulse Rate 102 H Pulse Rate [Left] 102 H Respiratory Rate 18 18 Blood Pressure 137/86 Blood Pressure [Right Arm] 137/86 Blood Pressure Mean [Right Arm] 103 02 Sat by Pulse Oximetry 97 - Lab Data Lab results reviewed: Yes: I reviewed the patient's lab results. [facility] [place] - General Stated complaint: covid exposure, LEON, nausea, loss of taste Time Seen by Provider: 02/23/21 14:15 - History of Present Illness Provider Complaint: She has had a sore throat, head ache and she has felt bad since yesterday. - Related Data Home Medications Medication Instructions Recorded Confirmed cephALEXin [Keflex 500mg Cap] 500 mg PO BID 09/30/19 09/30/19 Previous Rx's Medication Instructions Recorded Fluticasone Propionate [Flonase 1 - 2 spr NS DAILY #1 bottle 09/30/19 50mcg nasal spray 16gm] Brompheniramine/Pseudoephed/Dm 5 ml PO Q6HP PRN #240 ml 02/23/21 [Bromfed Dm Cough Syrup] Allergies Allergy/AdvReac Type Severity Reaction Status Date / Time No Known Allergies Allergy Verified 03/10/19 22:48 [facility] History - Hepatitis A Screen Attestation statement:: This patient has been screened for Hepatitis A risk factors. I have reviewed the patient's past medical history: Yes Medical History: Reports:: Seizures Denies:: Cancer, Diabetes Mellitus Type 1, Diabetes Mellitus Type 2, Hypertension, MRSA Other Medical History: Denies: Blood Transfusion Reaction Comment: smoker Laterality Cases: Bilateral: Other Other Surgeries: Yes: Cholecystectomy, , Dilation and Curettage, Other Amputation: No Fractures: No Comment: D&C - Social History Smoking Status: Current every day smoker Tobacco Type: cigarettes # Packs/Day (cigarettes): 1 #Yrs smoked (if former smoker): 2 Alcohol Intake: never Substance Use Type: denies use Occupational Status: other Housing: house Household Members: spouse, children Family Hx:: No significant family history, Diabetes ROS Obtained: Yes All systems reviewed & no additional complaints - Constitutional Constitutional: Reports as per HPI - Eyes Eyes: Denies eye discharge - ENT Ears, Nose, Mouth, and Throat: Reports as per HPI - Cardiovascular Cardiovascular: Denies chest pain - Respiratory Respiratory: Denies chest congestion, Reports cough, Denies dyspnea, Denies stridor, Denies wheezing Physical Exam - General General appearance: alert, in no apparent distress - Head Head exam: atraumatic, normocephalic, normal inspection - Eye Eye exam: Present: normal appearance, PERRL, EOMI - ENT E
[2021-02-23 13:46] VITALS: BP 137/86; PULSE 102; RESP 18; TEMP 37; O2SAT 97; BMI 36.3
[2021-02-23 14:44] VITALS: BP 137/86; PULSE 102; RESP 18; TEMP 37
== END 2021-02-23 14:45 | disposition home or self-care (01) ==
PROVIDERS: Emergency Provider Nurse Practitioner Family; PCP Internal Medicine Adolescent Medicine
DX: U07.1 COVID-19 (principal); R56.9 Unspecified convulsions; F17.210 Nicotine dependence, cigarettes, uncomplicated
CPT/HCPCS: 99202; C9803; G0463; U0003; U0005

== ENCOUNTER 2021-04-05 09:08 | Emergency (ER) | payer OTHER, SELFPAY ==
[2021-04-05 09:32] VITALS: BP 110/73; PULSE 79; RESP 14; TEMP 36.6; O2SAT 96; BMI 35.1
--- NOTE | 2021-04-05 09:48 | HMH.EDUTC ---
[facility] [place] Impression: Otitis media Qualifiers: Otitis media type: suppurative Chronicity: acute Laterality: bilateral Recurrence: non-recurrent Spontaneous tympanic membrane rupture: without spontaneous rupture Qualified Code(s): H66.003 - Acute suppurative otitis media without spontaneous rupture of ear drum, bilateral Pharyngitis Qualifiers: Pharyngitis/tonsillitis etiology: unspecified etiology Qualified Code(s): J02.9 - Acute pharyngitis, unspecified Disposition: Home, Self-Care Condition on Discharge: Good Instructions: Middle Ear Infection, Preventing the Spread of Coronavirus Discharge Instructions Additional Instructions: Drink plenty of fluids. Take tylenol or ibuprofen for pain or fever. Take the medications as directed. Follow up with your regular doctor. GO TO THE ER FOR ANY WORSENING SYMPTOMS Don't start the oral steroids until tomorrow, since you had the shot here today. Prescriptions: Brompheniramine/Pseudoephed/Dm [Bromfed Dm Cough Syrup] 5 ml PO Q6HP PRN #240 ml PRN Reason: Cough Transmission Status: Received by [id number] Amoxicillin [Amoxicillin 500mg Tab] 500 mg PO TID 10 Days #30 tab Transmission Status: Received by [facility] methylPREDNISolone [Medrol] 4 mg PO DIRECTED 6 Days #21 packet Transmission Status: Received by [facility] guaiFENesin [Mucinex 600mg tablet] 1 - 2 tab PO BIDP PRN #30 tab PRN Reason: Congestion Transmission Status: Received by [id number] Referrals: Rafita Sims MD [Primary Care Provider] - Forms: Work/School Release Time of Disposition: 10:08 Medical Decision Making - Medical Records Medical records reviewed: No: I reviewed the patient's medical records. - Ortiz Inquiry Pt receiving controlled substance: No Vital Signs: 04/05/21 09:32 04/05/21 10:29 Temperature 98 F 98 F Temperature Source Oral Pulse Rate 79 Pulse Rate [Left] 79 Respiratory Rate 14 14 Blood Pressure 110/73 Blood Pressure [Right Arm] 110/73 Blood Pressure Mean [Right Arm] 85 02 Sat by Pulse Oximetry 96 Orders (Tests/Meds): ED MEDICATIONS Discontinued Medications Generic Name Dose Route Start Last Admin Trade Name Freq PRN Reason Stop Dose Admin Ceftriaxone Sodium 1 gm 04/05/21 09:53 04/05/21 10:09 Ceftriaxone 1gm Vial IM 04/05/21 09:54 1 gm ONCE ONE Administration Lidocaine HCl 0 ml 04/05/21 09:53 04/05/21 10:09 Lidocaine 1% 5ml Pf Vial IM 04/05/21 09:54 5 ml ONCE ONE Administration Methylprednisolone Sodium Succinate 125 mg 04/05/21 09:53 04/05/21 10:10 Methylprednisolone Sod Succ 125mg Vial IM 04/05/21 09:54 125 mg ONCE ONE [place] [facility] [place] - General Stated complaint: possible ear infection, both ears Time Seen by Provider: 04/05/21 09:48 Mode of Arrival: Ambulatory Source of Information: Patient Limitations: No Limitations Description of Symptoms (Recalled from Triage Doc. by RN): pt c/o bilateral ear pain and ringing x2 days. HEENT Symptoms (Recalled from RN notes): Yes Resp Symptoms (Recalled from RN notes): No Skin Symptoms (Recalled from RN notes): No MS Symptoms (Recalled from RN notes): No Functional Status (Recalled from RN notes): wnl - History of Present Illness Provider Complaint: She states that for the past 2 days she has had bilateral ear pain and pressure. She has a mildly sore throat and a dry cough too. She had covid-19 abut 1 month ago, but she got completely better from that. She denies any fever or chills. - Related Data Home Medications Medication Instructions Recorded Confirmed cephALEXin [Keflex 500mg Cap] 500 mg PO BID 09/30/19 09/30/19 Previous Rx's Medication Instructions Recorded Fluticasone Propionate [Flonase 1 - 2 spr NS DAILY #1 bottle 09/30/19 50mcg nasal spray 16gm] Brompheniramine/Pseudoephed/Dm 5 ml PO Q6HP PRN #240 ml 02/23/21 [Bromfed Dm Cough Syrup] Amoxicillin [[place]
[2021-04-05 10:29] VITALS: BP 110/73; PULSE 79; RESP 14; TEMP 36.6
== END 2021-04-05 10:32 | disposition home or self-care (01) ==
PROVIDERS: Emergency Provider Nurse Practitioner Family; PCP Internal Medicine Adolescent Medicine
DX: H66.003 Acute suppurative otitis media without spontaneous rupture of ear drum, bilateral (principal); J02.9 Acute pharyngitis, unspecified; F17.210 Nicotine dependence, cigarettes, uncomplicated
CPT/HCPCS: 96372; 99202; G0463; J0696

== ENCOUNTER → 2021-07-04 13:19 | Outpatient (CLI) | payer BC, OTHER, SELFPAY ==
--- NOTE | 2021-07-04 13:29 | XR_ITS ---
FINAL REPORT CLINICAL HISTORY: SOB COMPARISON: October 18, 2016 FINDINGS: PA and lateral views of the chest were obtained. There is no prior exam for comparison. The cardiac and mediastinal silhouettes are within normal limits. There is evidence of granulomatous disease. The lungs are otherwise clear. There is no pleural effusion or pneumothorax. No acute osseous abnormality is identified. IMPRESSION: No radiographic evidence of acute cardiac or pulmonary disease. Reviewed, Interpreted and Dictated by Annika Gary MD Transcribed by Janelle Randall Authenticated by Annika Gary MD on 07/04/2021 03:56:24 PM [facility]
== END ==
PROVIDERS: PCP Internal Medicine Adolescent Medicine; Visit Provider Nurse Practitioner Family
DX: R06.02 Shortness of breath (principal)
CPT/HCPCS: 71046

== ENCOUNTER 2021-09-10 12:48 | Emergency (ER) | payer BC, OTHER, SELFPAY ==
[2021-09-10 13:00] VITALS: BP 114/62; PULSE 102; RESP 19; TEMP 36.7; O2SAT 96; BMI 35.9
--- NOTE | 2021-09-10 13:16 | HMH.EDUTC ---
[facility] [place] Disposition Clinical Impression: Exposure to COVID-19 virus, Viral syndrome Disposition: Home, Self-Care Condition on Discharge: Good Instructions: DI for COVID-19 (Suspected or Confirmed ), Preventing the Spread of Coronavirus Discharge Instructions Additional Instructions: *Monitor Temp, Over the counter Motrin or Tylenol as directed/as needed Tylenol every 4 hours and Motrin every 6 hours (as long as your family doctor has told you that you can take it) for fever or pain. and straight to ER if unable to lower temp less than 101.0 after medication given *Warm salt water gargles may help to soothe the throat *Throat Lozenges *Warm fluids like tea with honey may help to soothe the throat *Sleep elevated *Humidifier/Vaporizer Follow up IMMEDIATELY for new or worsening symptoms or no Noticeable improvement over the next 48-72 hours. 911 for difficulty breathing or swallowing You were tested for today for COVID19 your test result should be back in the next 24-48 hours, you may check your results on the [facility] My Health Portal Make sure to take your Vitamins Vit. C Vit D and Zinc if you can take them Referrals: Rafita Sims MD [Primary Care Provider] - As needed Forms: Work/School Release Medical Decision Making - Ortiz Inquiry Pt receiving controlled substance: No Ortiz was queried for this patient: No Vital Signs: 09/10/21 13:00 Temperature 98.1 F Temperature Source Oral Pulse Rate [Right Brachial] 102 H Respiratory Rate 19 Blood Pressure [Right Arm] 114/62 Blood Pressure Mean [Right Arm] 79 Blood Pressure Source [Right Arm] Automatic Cuff Blood Pressure Position [Right Arm] Sitting 02 Sat by Pulse Oximetry 96 Oxygen Delivery Method Room Air Orders (Tests/Meds): ORDERS Category Date Time Status Covid-19 Nasal PCR ([facility]) Routine Lab 09/10/21 12:56 Received [facility] [place] HPI - General Stated complaint: covid test Time Seen by Provider: 09/10/21 13:16 Mode of Arrival: Ambulatory Source of Information: Patient Limitations: No Limitations Description of Symptoms (Recalled from Triage Doc. by RN): PATIENT C/O SOA, BODY ACHES, AND FATIGUE SINCE YESTERDAY. EXPOSED TO COVID LAST WEEK HEENT Symptoms (Recalled from RN notes): No Resp Symptoms (Recalled from RN notes): Yes Skin Symptoms (Recalled from RN notes): No MS Symptoms (Recalled from RN notes): No Functional Status (Recalled from RN notes): WNL - History of Present Illness Provider Complaint: Patient states that she was exposed several times last week to COVID States that now she is having nasal congestion, body aches, chills and over all not feeling well for the last couple of days so she came in to get tested - Related Data Allergies Allergy/AdvReac Type Severity Reaction Status Date / Time No Known Allergies Allergy Verified 03/10/19 22:48 - Worker's Comp Is this a Worker's Comp case?: No [facility] History - Hepatitis A Screen Attestation statement:: This patient has been screened for Hepatitis A risk factors. I have reviewed the patient's past medical history: Yes Medical History: Reports:: Seizures Denies:: Cancer, Diabetes Mellitus Type 1, Diabetes Mellitus Type 2, Hypertension, MRSA Other Medical History: Denies: Blood Transfusion Reaction Comment: smoker Laterality Cases: Bilateral: Other Other Surgeries: Yes: Cholecystectomy, , Dilation and Curettage, Other Amputation: No Fractures: No Comment: D&C - Social History Smoking Status: Current every day smoker Tobacco Type: cigarettes # Packs/Day (cigarettes): 1 #Yrs smoked (if former smoker): 2 Alcohol Intake: never Substance Use Type: denies use Occupational Status: other Housing: house Household Members: spouse, children Family Hx:: No significant family history, Diabetes ROS Obtained: Yes All systems reviewed & no additional complaints, Yes Systems reviewed as appropriate & no additional complaints - Constitutional Constitutional: Reports system reviewe
[2021-09-10 13:23] VITALS: BP 114/62; PULSE 102; RESP 19; TEMP 36.7; O2SAT 96
== END 2021-09-10 13:27 | disposition home or self-care (01) ==
PROVIDERS: Emergency Provider Nurse Practitioner; PCP Internal Medicine Adolescent Medicine
DX: B34.9 Viral infection, unspecified (principal); Z20.822 Contact with and (suspected) exposure to COVID-19; R06.02 Shortness of breath; R52 Pain, unspecified; R53.83 Other fatigue; R50.9 Fever, unspecified
CPT/HCPCS: 99212; C9803; G0463; U0003; U0005

== ENCOUNTER 2022-03-13 19:10 | Emergency (ER) | payer BC, OTHER, SELFPAY ==
--- NOTE | 2022-03-13 19:58 | ECG_ITS ---
APPROVED REPORT Exam: Resting ECG HR:79 bpm ECG Measurements Heart Rate 79 AXES NC 130 P 50 QRSd 86 QRS 54 QT 338 T 53 QTc 373 Conclusion SINUS RHYTHM NORMAL ECG UNCONFIRMED REPORT Electronically signed by : Rafita Sims MD 03/14/2022 20:55:54
[2022-03-13 19:59] VITALS: BP 134/77; PULSE 87; RESP 18; TEMP 36.6; O2SAT 98; BMI 33.4
--- NOTE | 2022-03-13 20:06 | XR_ITS ---
PROCEDURE INFORMATION: Exam: XR Chest Exam date and time: 03/13/2022 8:09 PM Age: 27 years old Clinical indication: Cough; Patient HX: PT states she feels like her heart is beating irregularly TECHNIQUE: Imaging protocol: Radiologic exam of the chest. Views: 2 views. COMPARISON: CR XR CHEST 2V 07/04/2021 2:00 PM FINDINGS: Lungs: There is mild subsegmental atelectasis in the left mid lung. Lungs are otherwise clear. Pleural spaces: Unremarkable. No pleural effusion. No pneumothorax. Heart/Mediastinum: Unremarkable. No cardiomegaly. Bones/joints: Unremarkable. IMPRESSION: Mild subsegmental atelectasis in the left mid lung. Otherwise unremarkable chest
[2022-03-13 20:10] LABS: Coronavirus 19, PCR Not Detected (NotDetected); Influenza A, PCR Not Detected (NotDetected); Influenza B, PCR Not Detected (NotDetected)
--- NOTE | 2022-03-13 20:15 | HMH.EDARPALP ---
Discharge Plan Disposition Patient Disposition: Home, Self-Care Chief Complaint: Arrhythmia/Palpitations Prescriptions Prescriptions: No Action No Known Home Medications Referrals Follow up/Referrals: Rafita Sims MD [Primary Care Provider] - See instructions Clinical Impressions Clinical Impression: Palpitations Instructions Patient Instructions: DI for Palpitations Discharge ED Provider: Naz (ED)Kam Arrhythmia/Palpitations HPI General Chief Complaint: Arrhythmia/Palpitations Stated Complaint: cough, heart skipping beats Time Seen by Provider: 03/13/22 20:15 Mode of Arrival: Ambulatory Source of Information: Patient and Medical Record Limitations: No Limitations History of Present Illness HPI narrative: pt with episodes of heart racing w/o syncope or chest pain complaint: heart racing Onset (ago): day(s) Duration: intermittent Severity: moderate Associated symptoms: denies other symptoms Related Data Home Medications Medication Instructions Recorded Confirmed No Known Home Medications 03/13/22 03/13/22 Allergies Allergy/AdvReac Type Severity Reaction Status Date / Time No Known Allergies Allergy Verified 03/10/19 22:48 [facility] Disclaimer: The information contained in this section may have been updated after the patient was seen, as this information can be updated by other users. Social History Smoking Status: Current every day smoker tobacco type: cigarettes packs per day: 1 second hand exposure: Yes alcohol intake: never substance use type: denies use current occupational status: other Travel in the last 8 weeks: None household members: spouse and children housing: house ROS Obtained: Yes All systems reviewed & no additional complaints except as documented Physical Exam General General appearance: alert Head Head exam: normocephalic Eye Eye exam: Present PERRL and EOMI ENT ENT exam: Present mucous membranes moist Neck Neck exam: Present trachea midline Respiratory Respiratory exam: Absent respiratory distress Cardiovascular Cardiovascular exam: Present regular rate; Absent systolic murmur Abdominal Exam Abdominal exam: Present soft Extremities Exam Extremities exam: Present full ROM Neurological Exam Neurological exam: Present alert, oriented X3 and CN II-XII intact; Absent motor sensory deficit Psychiatric Psychiatric exam: Present normal affect Skin Skin exam: Absent rash Medical Decision Making Medical Records Medical records reviewed: Yes I reviewed the patient's medical records. Ortiz Inquiry Pt receiving controlled substance: No Vital Signs: 03/13/22 19:59 Temperature 98 F Temperature Source Oral Pulse Rate [Apical] 87 Respiratory Rate 18 Blood Pressure [Right Arm] 134/77 Blood Pressure Mean [Right Arm] 96 Blood Pressure Source [Right Arm] Automatic Cuff Blood Pressure Position [Right Arm] Sitting 02 Sat by Pulse Oximetry 98 Oxygen Delivery Method Room Air Lab Data Lab results reviewed: Yes I reviewed the patient's lab results. Lab Results 03/13/22 19:59: SARS-CoV-2 (PCR) Not detected, Influenza A Untype (PCR) Not detected, Influenza Type B (PCR) Not detected 03/13/22 20:15: WBC 11.6 H, RBC 4.75, Hgb 13.2, Hct 41.1, MCV 86.6, MCH 27.7, MCHC 32.0, RDW 14.7, Plt Count 334, MPV 8.1, Neut % (Auto) 55.0, Lymph % (Auto) 35.6, Lucas % (Auto) 3.8, Eos % (Auto) 3.9, Baso % (Auto) 1.7, Neut # (Auto) 6.4, Lymph # (Auto) 4.2, Lucas # (Auto) 0.5, Eos # (Auto) 0.5 H, Baso # (Auto) 0.2 03/13/22 20:15: Sodium 139, Potassium 4.4, Chloride 106, Carbon Dioxide 28, Anion Gap 9.4, BUN 7, Creatinine 0.50 L, Estimated Creat Clear 197, Estimated GFR 150, Est GFR ( Amer) 182, Glucose 96, Calcium 8.9, Magnesium 2.1, Troponin I < 0.01 03/13/22 20:15: Urine Color Yellow, Urine Appearance Clear, Urine pH 7.0, Ur Specific [place] 1.015, Urine Protein Negative, Urine Glucose (UA) Negative, Urine Ketones Negative, Urine B
[2022-03-13 20:30] VITALS: PULSE 86; RESP 23; O2SAT 95
[2022-03-13 20:38] LABS: Microscopic, Urine URINE MICROSCOPIC (MICROSCOPIC)
[2022-03-13 20:41] LABS: Basophils # 0.2 K/mm3 (0-0.2); Basophils % 1.7 % (0.1-2.0); Eosinophils # 0.5 K/mm3 (0.0-0.4); Eosinophils % 3.9 % (0.1-12.0); Hematocrit 41.1 % (37.0-47.0); Hemoglobin 13.2 g/dL (12.2-16.2); Lymphocytes # 4.2 K/mm3 (0.7-4.5); Lymphocytes % 35.6 % (10-50); Mean Corpuscular Hemoglobin 27.7 pg (27.0-31.2); Mean Corpuscular Volume 86.6 fl (81-99); Mean Platelet Volume 8.1 fl (7.4-10.4); Monocytes # 0.5 K/mm3 (0.1-1.0); Monocytes % 3.8 % (1.7-9.3); Neutrophils # 6.4 K/mm3 (1.8-7.8); Platelet Count 334 K/mm3 (142-424); Red Blood Count 4.75 M/mm3 (4.20-5.40); Red Cell Distribution Width 14.7 % (11.5-17.5); White Blood Count 11.6 K/mm3 (4.8-10.8)
[2022-03-13 20:44] LABS: Chloride 106 mmol/L (98-107); Potassium 4.4 mmoL/L (3.5-5.1); Sodium 139 mmol/L (136-145)
[2022-03-13 20:47] LABS: Anion Gap 9.4 mEq/L (5-15); Blood Urea Nitrogen 7 mg/dl (7-17); Calcium 8.9 mg/dl (8.4-10.2); Carbon Dioxide 28 mmol/L (22.0-30.0); Creatinine Clearance Estimated 197 mL/min (50-200); Estimated Glomerular Filt Rate 150 ml/min (>60); GFR (African American) 182 ML/MIN (>60); Glucose 96 mg/dl (74-100); Magnesium 2.1 mg/dl (1.6-2.3)
[2022-03-13 20:52] LABS: Appearance,Urine CLEAR (Clear); Bilirubin,Urine Negative (Negative); Blood, Urine Negative (Negative); Color,Urine YELLOW (Yellow); Glucose,Urine (UA) Negative (Negative); Ketones,Urine Negative (Negative); Leukocyte Esterase,Urine Negative (Negative); Nitrate,Urine Negative (Negative); Protein,Urine Negative (Negative); Specific Gravity, Urine 1.015 (1.005-1.030); Urobilinogen,Urine 0.2 EU/dl (0.2)
[2022-03-13 20:54] LABS: Urine Pregnancy, HCG Qual. Negative (Negative)
[2022-03-13 21:00] VITALS: PULSE 77; RESP 24; O2SAT 95
[2022-03-13 21:02] LABS: Bacteria,Urine 1+ /lpf
[2022-03-13 21:10] LABS: Troponin I < 0.01 ng/ml (0.00-0.034)
[2022-03-13 21:30] VITALS: PULSE 80; RESP 18; O2SAT 95
[2022-03-13 22:00] VITALS: PULSE 87; RESP 18; O2SAT 95
[2022-03-13 22:38] VITALS: BP 128/78; PULSE 98; RESP 17; TEMP 36.8; O2SAT 98
== END 2022-03-13 22:42 | disposition home or self-care (01) ==
PROVIDERS: Emergency Provider Emergency Medicine; PCP Internal Medicine Adolescent Medicine
DX: R00.2 Palpitations (principal); F17.210 Nicotine dependence, cigarettes, uncomplicated; Z20.822 Contact with and (suspected) exposure to COVID-19
CPT/HCPCS: 71046; 80048; 81001; 81025; 83735; 84484; 85025; 93005; 99285; C9803; U0003; U0005

== ENCOUNTER 2023-02-13 20:32 | Emergency (ER) | payer BC, SELFPAY ==
[2023-02-13 20:40] VITALS: BP 125/74; PULSE 106; RESP 20; TEMP 36.8; O2SAT 98; BMI 33.5
[2023-02-13 20:49] LABS: Coronavirus 19, PCR Not Detected (NotDetected); Influenza A, PCR Not Detected (NotDetected); Influenza B, PCR Not Detected (NotDetected)
[2023-02-13 21:06] LABS: Strep Scrn Group A (Rapid) Negative (Negative)
--- NOTE | 2023-02-13 22:17 | XR_ITS ---
PROCEDURE INFORMATION: Exam: XR Chest Exam date and time: 02/13/2023 10:38 PM Age: 27 years old Clinical indication: Shortness of breath; Additional info: SOA, cough TECHNIQUE: Imaging protocol: Radiologic exam of the chest. Views: 2 views. COMPARISON: CR XR CHEST 2V 03/13/2022 8:09 PM FINDINGS: Lungs: Unremarkable. No consolidation. Benign calcified left lower lung zone granuloma. Pleural spaces: Unremarkable. No pleural effusion. No pneumothorax. Heart/Mediastinum: Unremarkable. No cardiomegaly. Bones/joints: Unremarkable. IMPRESSION: No acute findings.
--- NOTE | 2023-02-13 22:17 | HMH.EDGENADL ---
Discharge Plan Disposition Patient Disposition: Home, Self-Care Condition: Good Prescriptions Prescriptions: New albuterol sulfate 90 mcg/actuation HFA aerosol inhaler 4 inh inhalation Q4H PRN (Reason: shortness of breath or wheezing) Qty: 8.5 0RF Rx Instructions: until breathing returns to target peak flow/parameters Referrals Follow up/Referrals: Rafita Sims MD [Primary Care Provider] - See instructions Activity Restrictions/Add. Instructions Additional Instructions/Restrictions: Please use the inhaler as needed. Please return with any new or worsening symptoms. Clinical Impressions Clinical Impression: Bronchitis Acute pharyngitis Qualifiers: Pharyngitis/tonsillitis etiology: unspecified etiology Qualified Code(s): J02.9 - Acute pharyngitis, unspecified Discharge ED Provider: Heber Storey Adult HPI General Chief complaint: Upper Respiratory Infection Stated complaint: SOA, right ear pain Time Seen by Provider: 02/13/23 22:11 Mode of Arrival: Ambulatory Source of Information: Patient Limitations: No Limitations Description of Symptoms (Recalled from ER Triage Doc. by RN): pt c/o a productive cough with clear sputum, SOA with exertion, R ear pain that radiates into her throat, and fatigue. pt states she has been sick since yesterday. History of Present Illness HPI narrative: Patient notes 1 day of sore throat, pressure sensation behind bilateral ears, frequent cough, dyspnea. She has no known sick contacts. No previous therapies. Denies chronic medical issues. Does admit to smoking. Denies any fevers or chills. Denies any globus sensation. Denies any tooth ache. Denies any neck swelling. Denies any trismus. Denies any hoarse voice. Symptom that bothers her most at this time as her frequent nonproductive cough. Symptoms were gradual in onset and stable in course. Related Data Previous Rx's Medication Instructions Recorded albuterol sulfate 90 mcg/actuation 4 inh inhalation Q4H PRN shortness 02/13/23 aerosol inhaler of breath or wheezing #8.5 grams Allergies Allergy/AdvReac Type Severity Reaction Status Date / Time No Known Allergies Allergy Verified 02/13/23 20:44 [facility] Disclaimer: The information contained in this section may have been updated after the patient was seen, as this information can be updated by other users. Social History Smoking Status: Current every day smoker tobacco type: cigarettes packs per day: 1 second hand exposure: Yes alcohol intake: never substance use type: denies use current occupational status: other Travel in the last 8 weeks: None household members: spouse and children housing: house ROS Obtained: Yes Systems reviewed as appropriate & no additional complaints except as documented As per HPI Physical Exam General General appearance: alert and in no apparent distress Head Head exam: atraumatic and normocephalic Eye Eye exam: Present normal appearance Expanded ENT Exam TM/Canal exam: Bilateral TM: bulging Mouth exam: Absent trismus Throat exam: Present tonsillar erythema; Absent tonsillar exudate, R peritonsillar mass, L peritonsillar mass or muffled voice Neck Neck exam: Present normal inspection Chest Chest inspection: Present normal inspection and symmetric chest wall rise Respiratory Respiratory exam: Present normal lung sounds bilaterally; Absent respiratory distress Cardiovascular Cardiovascular exam: Present regular rate and normal rhythm Abdominal Exam Abdominal exam: Present soft Neurological Exam Neurological exam: Present alert and oriented X3 Psychiatric Psychiatric exam: Present normal affect and normal mood Skin Skin exam: Present warm and dry Medical Decision Making Medical Records Medical records reviewed: Yes I reviewed the patient's medical records. Ortiz Inquiry Pt receiving controlled substance: No Vital Signs: 02/13/23 20:40 02/13/23 23:38 Temperature 98.2 F 98.2 F Temperature Source Oral Oral Pulse Rate 91 H Pulse Rate [Left] 106 H Respiratory Rate 20 18 Blood Pressure 120/72 Blood Pressure [Right Arm] 125/74 Blood Pressure Mean [Right Arm] 91 Blood Pressure Source [Right Arm] Automatic Cuff Blood Pressure Position [Right Arm] Sitting 02 Sat by Pulse Oximetry 98 Oxygen Delivery Method Room Air Lab Data Lab Results 02/13/23 20:45: SARS-CoV-2 (PCR) Not detected, Influenza A Untype (PCR) Not detected, Influenza Type B (PCR) Not detected, Group A Strep Rapid Negative Orders (Tests/Meds): ED MEDICATIONS Discontinued Medications Generic Name Dose Route Start Last Admin Trade Name Rosalie PRN Reason Stop Dose Admin Dexamethasone 10 mg 02/13/23 23:33 02/13/23 23:36 Dexamethasone 4mg Tablet PO 02/13/23 23:34 10 mg ONCE ONE Administration ORDERS Category Date Time Status XR chest 2V Stat Exams 02/13/23 22:17 Completed Rapid PCR Covid and Flu A/B Stat Lab 02/13/23 20:45 Completed Strep Scrn Group A (Rapid) Stat Lab 02/13/23 20:45 Completed Strep Screen Confirmation Stat Micro 02/13/23 20:45 Received Medical Decision Narrative: Patient with history and exam per above presenting for evaluation of upper respiratory symptoms Diagnoses considered include bronchitis, pneumonia, otitis media, pharyngitis, no clinical evidence at this time to suggest peritonsillar abscess, retropharyngeal abscess, or epiglottitis or other acute surgical pathology ED workup and treatment included: ED MEDICATIONS Discontinued Medications Generic Name Dose Route Start Last Admin Trade Name Rosalie PRN Reason Stop Dose Admin Dexamethasone 10 mg 02/13/23 23:33 02/13/23 23:36 Dexamethasone 4mg Tablet PO 02/13/23 23:34 10 mg ONCE ONE Administration ORDERS Category Date Time Status XR chest 2V Stat Exams 02/13/23 22:17 Completed Rapid PCR Covid and Flu A/B Stat Lab 02/13/23 20:45 Completed Strep Scrn Group A (Rapid) Stat Lab 02/13/23 20:45 Completed Strep Screen Confirmation Stat Micro 02/13/23 20:45 Received Labs were independently interpreted by me, significant for COVID and flu negative Imaging was independently visualized and interpreted by me, significant for no acute findings Symptoms at this time are thought to be most consistent with bronchitis. I discussed my clinical impression with patient and answered all questions. At this time, given reassuring workup and exam, I discussed that I have a low index of suspicion for any acute pathology necessitating inpatient management. Specific return precautions were given, with understanding and agreement. Patient will follow up with primary care provider as needed. Patient was administered one-time dose of dexamethasone p.o. 10 mg for symptomatic treatment of pharyngitis, was written for albuterol inhaler dyspnea to use as needed. Will return with any new or worsening symptoms. Critical Care Critical Care Time Critical Care Time: No
--- NOTE | 2023-02-13 22:51 | PC.NURSE ---
back from RAD at this time
[2023-02-13] MEDS: DEXAMETHASONE 4MG TABLET 10 MG PO (23:36)
[2023-02-13 23:38] VITALS: BP 120/72; PULSE 91; RESP 18; TEMP 36.8; O2SAT 99
== END 2023-02-13 23:39 | disposition home or self-care (01) ==
PROVIDERS: Emergency Provider Emergency Medicine; PCP Internal Medicine Adolescent Medicine
DX: J40 Bronchitis, not specified as acute or chronic (principal); J02.9 Acute pharyngitis, unspecified; R06.02 Shortness of breath; H92.01 Otalgia, right ear; F17.210 Nicotine dependence, cigarettes, uncomplicated
CPT/HCPCS: 71046; 87430; 87636; 99284